=== PATIENT | female | born 1955 | race Hispanic/Latino ===

== ENCOUNTER → 2017-10-19 | Outpatient (CLI) | payer MEDICARE ==
[~2017-10-19] MED LIST: ASPI-1012 PO; ASPI-555 PO; ATOR20TA65 PO; CHOL50004 PO; INSU100I21 SQ; ISOSORBIDE PO; LEVE500T8 PO; LISI-617 PO; METF500T6 PO; METOPROLOL ER PO; SIMV20TA6 PO
== END | disposition home or self-care (01) ==
LOC: SHCH 09:54
PROVIDERS: ATTEND Internal Medicine Cardiovascular Disease
DX: I65.23 Occlusion and stenosis of bilateral carotid arteries (principal)
CPT/HCPCS: 93880

== ENCOUNTER 2017-11-07 20:25 | Inpatient (IN) | payer MEDICARE ==
[~2017-11-07] VITALS: Ht 154.9 cm; Wt 68.5 kg
[~2017-11-07 20:25] MED LIST changes: -ASPI-1012 PO; -ATOR20TA65 PO; -CHOL50004 PO; -METF500T6 PO
[2017-11-07] MEDS ORDERED: ASPIRIN 325 MG TABLET ONE (20:45)
[2017-11-07 21:04] LABS: BASOPHILS % (AUTO) 1.3 % (0.0-5.0); EOSINOPHILS % (AUTO) 3.8 % (0.0-8.0); HEMATOCRIT 37.1 % (36-48); LYMPHOCYTES % (AUTO) 27.8 % (21.0-51.0); MEAN CORPUSCULAR HEMOGLOBIN 30.1 pg (27.0-33.0); MEAN CORPUSCULAR HGB CONC 34.3 g/dL (32.0-36.0); MEAN CORPUSCULAR VOLUME 87.7 fL (79-99); MONOCYTES % (AUTO) 7.9 % (3.0-13.0); NEUTROPHILS % (AUTO) 59.2 % (40.0-77.0); PLATELET COUNT (AUTO) 178 K/uL (130-400); RED BLOOD CELL COUNT(AUTO) 4.23 MIL/uL (4.00-5.50); RED CELL DISTRIBUTION WIDTH 12.4 % (11.0-15.5); WHITE BLOOD COUNT (AUTO) 9.4 K/uL (4.8-10.8)
[2017-11-07 21:15] LABS: CREATININE 1.1 mg/dL (0.5-1.5); INR 1.01 (0.85-1.15); POTASSIUM 4.1 mmol/L (3.5-5.1); PROTHROMBIN TIME 10.6 SEC (9.6-11.6)
[2017-11-07 21:29] LABS: ALBUMIN 3.7 g/dL (3.5-5.0); BILIRUBIN,TOTAL 0.6 mg/dL (0.2-1.0); CREATINE KINASE MB 1.2 ng/mL (0.5-3.6); TOTAL PROTEIN, SERUM 7.2 g/dL (6.0-8.3)
[2017-11-07 21:32] LABS: B-TYPE NATRIURETIC PEPTIDE 15 pg/mL (0-100)
[2017-11-07] MEDS ORDERED: CLOPIDOGREL BISULFATE 75 MG TAB ONE (21:55)
[2017-11-07 23:30] VITALS: BP 144/79
[2017-11-08] MEDS ORDERED: LIDOCAINE HCL-MPF 1% 2ML VIAL IVP PRN (00:45)
[2017-11-08] MEDS ORDERED: POTASSIUM CHLORIDE 20 MEQ ERTAB PO PRN (00:45)
[2017-11-08] MEDS ORDERED: ACETAMINOPHEN 325 MG TAB PO PRN ×2 (00:45)
[2017-11-08] MEDS ORDERED: HYDRALAZINE HCL 20 MG/ML VIAL IV PRN (00:45)
[2017-11-08] MEDS ORDERED: POTASSIUM CHLORIDE 10% ELIXIR 20 MEQ/15 ML UDCUP PO PRN (00:45)
[2017-11-08] MEDS ORDERED: DEXTROSE 50%-WATER 50 ML DISP.SYRIN IV PRN (00:45)
[2017-11-08] MEDS ORDERED: ONDANSETRON HCL MDV 20ML 2 MG/ML VIAL IV PRN (00:45)
[2017-11-08] MEDS ORDERED: POTASSIUM CHLORIDE 20MEQ/100ML 100 ML IV PRN (00:45)
[2017-11-08] MEDS ORDERED: GLUCAGON 1MG KIT 1 MG ML IM PRN (00:45)
[2017-11-08] MEDS ORDERED: CHOL50004 PO (01:45)
[2017-11-08] MEDS ORDERED: METF500T6 PO (01:45)
[2017-11-08 03:49] VITALS: BP 123/60
[2017-11-08 04:44] LABS: MEAN CORPUSCULAR HEMOGLOBIN 30.2 pg (27.0-33.0); MEAN CORPUSCULAR VOLUME 89.1 fL (79-99); PLATELET COUNT (AUTO) 175 K/uL (130-400); RED BLOOD CELL COUNT(AUTO) 4.27 MIL/uL (4.00-5.50); RED CELL DISTRIBUTION WIDTH 12.6 % (11.0-15.5); WHITE BLOOD COUNT (AUTO) 8.6 K/uL (4.8-10.8)
[2017-11-08 04:58] LABS: HEMOGLOBIN A1C 8.1 % (4.0-6.0)
[2017-11-08] MEDS: INSULIN HUMULIN R 100 UNIT/ML 3ML SQ SCH ×4 (05:59→21:09)
[2017-11-08 07:00] VITALS: BP 130/73
[2017-11-08] MEDS: ASPIRIN 325MG EC TAB 325 MG TABLET.DR PO SCH (09:05)
[2017-11-08] MEDS: METOPROLOL TARTRATE 25 MG TAB PO SCH ×2 (09:05→20:12)
[2017-11-08] MEDS: PANTOPRAZOLE SODIUM 40 MG TABLET.DR PO SCH (09:05)
[2017-11-08 11:10] VITALS: BP 131/79
[2017-11-08 15:05] VITALS: BP 121/69
[2017-11-08 19:11] VITALS: BP 127/71
[2017-11-08] MEDS ORDERED: ATORVASTATIN CALCIUM 20 MG TABLET PO SCH (21:00)
[2017-11-08 23:30] VITALS: BP 113/64
[2017-11-09 03:27] VITALS: BP 133/68
[2017-11-09] MEDS: INSULIN HUMULIN R 100 UNIT/ML 3ML SQ SCH (06:15)
[2017-11-09 07:00] VITALS: BP 135/80
[2017-11-09] MEDS ORDERED: ATOR20TA65 PO (08:24)
[2017-11-09] MEDS: ASPIRIN 325MG EC TAB 325 MG TABLET.DR PO SCH (08:48)
[2017-11-09] MEDS: METOPROLOL TARTRATE 25 MG TAB PO SCH (08:48)
[2017-11-09] MEDS: PANTOPRAZOLE SODIUM 40 MG TABLET.DR PO SCH (08:49)
[2017-11-09] MEDS ORDERED: LISINOPRIL 2.5 MG TABLET PO SCH (09:00)
[2017-11-09] MEDS ORDERED: ISOSORBIDE MONO 30MG TAB SR PO SCH (09:00)
[2017-11-09 11:00] VITALS: BP 119/61
[2017-11-09] MEDS ORDERED: ASPI-1012 PO (11:18)
== END 2017-11-09 12:25 | disposition home or self-care (01) | DRG 69 ==
LOC: EDH 20:25 → EDHIP 21:30 → OBSVTOIN 21:30 → 3BH 22:27 → 3CH 23:15
PROVIDERS: ADMIT Family Medicine; ATTEND Family Medicine
DX: G45.9 Transient cerebral ischemic attack, unspecified (principal); E11.65 Type 2 diabetes mellitus with hyperglycemia; I11.9 Hypertensive heart disease without heart failure; E78.5 Hyperlipidemia, unspecified; I25.10 Atherosclerotic heart disease of native coronary artery without angina pectoris; Z79.82 Long term (current) use of aspirin; Z95.5 Presence of coronary angioplasty implant and graft; Z82.3 Family history of stroke; Z88.1 Allergy status to other antibiotic agents; Z88.8 Allergy status to other drugs, medicaments and biological substances
CPT/HCPCS: 36415; 70450; 70544; 70547; 70551; 71045; 80053; 82270; 82550; 82553; 82948; 83036; 83874; 83880; 84443; 84484; 85025; 85027; 85610; 85730; 92522; 92610; 93005; 93306; 99291; J1815

== ENCOUNTER 2017-11-12 01:27 | Emergency (ER) | payer MEDICARE ==
[~2017-11-12 01:27] MED LIST changes: +ASPI-1012 PO; +ATOR20TA65 PO; +CHOL50004 PO; +METF500T6 PO
[2017-11-12 01:57] LABS: EOSINOPHILS % (AUTO) 3.3 % (0.0-8.0); HEMATOCRIT 37.5 % (36-48); LYMPHOCYTES % (AUTO) 24.8 % (21.0-51.0); MEAN CORPUSCULAR HEMOGLOBIN 30.3 pg (27.0-33.0); MEAN CORPUSCULAR HGB CONC 34.2 g/dL (32.0-36.0); MEAN CORPUSCULAR VOLUME 88.7 fL (79-99); MONOCYTES % (AUTO) 7.1 % (3.0-13.0); NEUTROPHILS % (AUTO) 63.8 % (40.0-77.0); NUCLEATED RED BLOOD CELLS 0.1 % (0.0-0.19); PLATELET COUNT (AUTO) 186 K/uL (130-400); RED BLOOD CELL COUNT(AUTO) 4.23 MIL/uL (4.00-5.50); RED CELL DISTRIBUTION WIDTH 12.7 % (11.0-15.5); WHITE BLOOD COUNT (AUTO) 11.8 K/uL (4.8-10.8)
[2017-11-12 02:11] LABS: POTASSIUM 3.8 mmol/L (3.5-5.1)
[2017-11-12 02:22] LABS: ALBUMIN 3.7 g/dL (3.5-5.0); BILIRUBIN,TOTAL 0.8 mg/dL (0.2-1.0); TOTAL PROTEIN, SERUM 7.2 g/dL (6.0-8.3)
[2017-11-12 02:32] LABS: APPEARANCE,URINE Clear (CLEAR); BILIRUBIN,URINE Negative (NEGATIVE); COLOR,URINE Yellow (YELLOW); GLUCOSE, URINE (UA) Negative (NEGATIVE); KETONES,URINE Negative (NEGATIVE); LEUKOCYTE ESTERASE ,URINE Trace (NEGATIVE); NITRATE,URINE Negative (NEGATIVE); OCCULT BLOOD,URINE Negative (NEGATIVE); PROTEIN,URINE Negative (NEGATIVE)
[2017-11-12] MEDS ORDERED: LIDOCAINE HCL 2% VISCOUS 15 ML UDCUP ONE (02:40)
[2017-11-12] MEDS ORDERED: MAG HYDROX/AL HYDROX/SIMETH ES 30 ML SUSP UDCUP ONE (02:40)
[2017-11-12] MEDS ORDERED: NITROGLYCERIN 1GM/1 INCH PACKET TD ONE (02:41)
[2017-11-12 02:49] LABS: BACTERIA,URINE Few /HPF (None Seen); RBC,URINE None Seen /HPF (0-1); SQUAMOUS EPITHELIAL CELL,UR 0-2 /HPF (0-2)
[2017-11-12] MEDS ORDERED: IOPAMIDOL-370 100 ML VIAL IV ONE (05:15)
== END 2017-11-12 07:48 | disposition home or self-care (01) ==
LOC: EDH 01:27
DX: R07.89 Other chest pain (principal); E11.9 Type 2 diabetes mellitus without complications; E78.5 Hyperlipidemia, unspecified; I10 Essential (primary) hypertension; I25.10 Atherosclerotic heart disease of native coronary artery without angina pectoris; Z88.2 Allergy status to sulfonamides; Z88.1 Allergy status to other antibiotic agents; Z90.49 Acquired absence of other specified parts of digestive tract; Z98.890 Other specified postprocedural states
CPT/HCPCS: 36415; 71045; 71275; 80053; 81001; 82150; 83690; 84484 ×2; 85025; 85378; 93005 ×2; 99285; Q9967

== ENCOUNTER 2017-11-23 20:28 | Emergency (ER) | payer MEDICARE ==
[2017-11-23] MEDS ORDERED: ACETAMINOPHEN-CODEINE 300/30MG TAB ONE (20:50)
== END 2017-11-23 21:31 | disposition home or self-care (01) ==
LOC: EDH 20:28
DX: S83.8X1A Sprain of other specified parts of right knee, initial encounter (principal); I25.10 Atherosclerotic heart disease of native coronary artery without angina pectoris; E11.9 Type 2 diabetes mellitus without complications; E78.5 Hyperlipidemia, unspecified; I10 Essential (primary) hypertension; Z88.2 Allergy status to sulfonamides; Z88.1 Allergy status to other antibiotic agents; X50.0XXA Overexertion from strenuous movement or load, initial encounter; Y93.89 Activity, other specified; Y92.098 Other place in other non-institutional residence as the place of occurrence of the external cause; Y99.8 Other external cause status
CPT/HCPCS: 73562

== ENCOUNTER 2017-11-29 16:42 | Emergency (ER) | payer MEDICARE ==
[2017-11-29 17:54] LABS: BASOPHILS % (AUTO) 1.2 % (0.0-5.0); EOSINOPHILS % (AUTO) 3.3 % (0.0-8.0); LYMPHOCYTES % (AUTO) 24.1 % (21.0-51.0); MEAN CORPUSCULAR HEMOGLOBIN 30.3 pg (27.0-33.0); MEAN CORPUSCULAR HGB CONC 34.2 g/dL (32.0-36.0); MEAN CORPUSCULAR VOLUME 88.5 fL (79-99); MONOCYTES % (AUTO) 6.3 % (3.0-13.0); NEUTROPHILS % (AUTO) 65.1 % (40.0-77.0); NUCLEATED RED BLOOD CELLS 0.1 % (0.0-0.19); PLATELET COUNT (AUTO) 217 K/uL (130-400); WHITE BLOOD COUNT (AUTO) 10.8 K/uL (4.8-10.8)
[2017-11-29 18:01] LABS: CREATININE 0.9 mg/dL (0.5-1.5); POTASSIUM 4.5 mmol/L (3.5-5.1)
[2017-11-29 18:06] LABS: ALBUMIN 3.7 g/dL (3.5-5.0); BILIRUBIN,TOTAL 0.4 mg/dL (0.2-1.0); TOTAL PROTEIN, SERUM 7.2 g/dL (6.0-8.3)
== END 2017-11-29 19:20 | disposition home or self-care (01) ==
LOC: EDH 16:42
DX: K59.00 Constipation, unspecified (principal); R10.84 Generalized abdominal pain; E11.9 Type 2 diabetes mellitus without complications; E78.5 Hyperlipidemia, unspecified; I10 Essential (primary) hypertension; I25.10 Atherosclerotic heart disease of native coronary artery without angina pectoris; Z90.49 Acquired absence of other specified parts of digestive tract; Z88.1 Allergy status to other antibiotic agents; Z88.2 Allergy status to sulfonamides
CPT/HCPCS: 36415; 74021; 80053; 85025

== ENCOUNTER → 2017-12-01 | Outpatient (CLI) | payer MEDICARE | END | disposition home or self-care (01) | LOC: RAH 14:57 | PROVIDERS: ATTEND Nurse Practitioner Family | DX: M25.512 Pain in left shoulder (principal) | CPT/HCPCS: 73030 ==

== ENCOUNTER 2018-02-25 11:50 | Emergency (ER) | payer MEDICARE ==
[~2018-02-25 11:50] MED LIST changes: +METF-444 PO; -METF500T6 PO
[2018-02-25] MEDS ORDERED: ORPHENADRINE CITRATE 30 MG/ML ML ONE (12:15)
== END 2018-02-25 13:30 | disposition home or self-care (01) ==
LOC: EDH 11:50
DX: M62.838 Other muscle spasm (principal); K21.9 Gastro-esophageal reflux disease without esophagitis; E78.5 Hyperlipidemia, unspecified; I25.10 Atherosclerotic heart disease of native coronary artery without angina pectoris; I10 Essential (primary) hypertension; E11.9 Type 2 diabetes mellitus without complications; Z88.2 Allergy status to sulfonamides; Z88.1 Allergy status to other antibiotic agents
CPT/HCPCS: 72040; 96372; 99284; J2360

== ENCOUNTER 2018-02-27 10:49 | Emergency (ER) | payer MEDICARE ==
[2018-02-27] MEDS ORDERED: DIAZEPAM 5 MG TABLET ONE (11:38)
[2018-02-27] MEDS ORDERED: LIDOCAINE 5% TOPICAL PATCH TP ONE (11:38)
== END 2018-02-27 16:35 | disposition home or self-care (01) ==
LOC: EDH 10:49
DX: M62.838 Other muscle spasm (principal); E78.5 Hyperlipidemia, unspecified; E11.9 Type 2 diabetes mellitus without complications; K21.9 Gastro-esophageal reflux disease without esophagitis; I25.10 Atherosclerotic heart disease of native coronary artery without angina pectoris; Z88.1 Allergy status to other antibiotic agents; Z88.2 Allergy status to sulfonamides; Z90.49 Acquired absence of other specified parts of digestive tract; Z98.890 Other specified postprocedural states

== ENCOUNTER 2018-03-10 14:32 | Emergency (ER) | payer MEDICARE ==
[2018-03-10] MEDS ORDERED: MORPHINE SULFATE 4 MG/1ML SYG ONE ×2 (14:54→15:11)
[2018-03-10] MEDS ORDERED: ONDANSETRON HCL 4 MG/2 ML VIAL ONE (15:11)
[2018-03-10] MEDS ORDERED: SODIUM CHLORIDE 0.9% 500ML 500 ML IV ONE (15:12)
[2018-03-10 15:25] LABS: BASOPHILS % (AUTO) 0.7 % (0.0-5.0); EOSINOPHILS % (AUTO) 0.8 % (0.0-8.0); HEMATOCRIT 41.1 % (36-48); LYMPHOCYTES % (AUTO) 16.1 % (21.0-51.0); MEAN CORPUSCULAR HEMOGLOBIN 29.6 pg (27.0-33.0); MEAN CORPUSCULAR VOLUME 89.7 fL (79-99); MONOCYTES % (AUTO) 5.9 % (3.0-13.0); NEUTROPHILS % (AUTO) 76.5 % (40.0-77.0); PLATELET COUNT (AUTO) 241 K/uL (130-400); RED BLOOD CELL COUNT(AUTO) 4.58 MIL/uL (4.00-5.50); RED CELL DISTRIBUTION WIDTH 12.8 % (11.0-15.5); WHITE BLOOD COUNT (AUTO) 14.7 K/uL (4.8-10.8)
[2018-03-10 15:33] LABS: APPEARANCE,URINE Clear (CLEAR); BILIRUBIN,URINE Negative (NEGATIVE); COLOR,URINE Yellow (YELLOW); GLUCOSE, URINE (UA) TRACE mg/dL (NEGATIVE); KETONES,URINE Negative (NEGATIVE); LEUKOCYTE ESTERASE ,URINE Small (NEGATIVE); NITRATE,URINE Negative (NEGATIVE); OCCULT BLOOD,URINE Negative (NEGATIVE); PH,URINE 5.5 (5.0-8.0); PROTEIN,URINE Negative (NEGATIVE); UROBILINOGEN,URINE 0.2 mg/dL (0.2-1.0)
[2018-03-10 15:40] LABS: CREATININE 0.9 mg/dL (0.5-1.5); POTASSIUM 4.2 mmol/L (3.5-5.1)
[2018-03-10 15:46] LABS: ALBUMIN 3.8 g/dL (3.5-5.0); TOTAL PROTEIN, SERUM 7.3 g/dL (6.0-8.3)
[2018-03-10] MEDS ORDERED: IOHEXOL-350 75 ML VIAL IV ONE (15:46)
[2018-03-10 15:56] LABS: BACTERIA,URINE None Seen /HPF (None Seen); RBC,URINE None Seen /HPF (0-1); WBC,URINE 0-1 /HPF (0-1)
== END 2018-03-10 17:26 | disposition home or self-care (01) ==
LOC: EDH 14:32
DX: R10.33 Periumbilical pain (principal); I25.10 Atherosclerotic heart disease of native coronary artery without angina pectoris; E11.9 Type 2 diabetes mellitus without complications; K21.9 Gastro-esophageal reflux disease without esophagitis; E78.5 Hyperlipidemia, unspecified; I10 Essential (primary) hypertension; Z88.2 Allergy status to sulfonamides; Z88.1 Allergy status to other antibiotic agents
CPT/HCPCS: 36415; 74177; 80053; 81001; 83690; 84484; 85025; 93005; 96374; 96375; 99285; J2270 ×2; J2405; J7040; Q9967

== ENCOUNTER 2018-03-18 03:51 | Emergency (ER) | payer MEDICARE ==
[2018-03-18 04:18] LABS: APPEARANCE,URINE Cloudy (CLEAR); BILIRUBIN,URINE Small (NEGATIVE); COLOR,URINE Red (YELLOW); GLUCOSE, URINE (UA) Negative (NEGATIVE); KETONES,URINE Negative (NEGATIVE); LEUKOCYTE ESTERASE ,URINE Large (NEGATIVE); NITRATE,URINE Positive (NEGATIVE); OCCULT BLOOD,URINE Large (NEGATIVE); PH,URINE 5.5 (5.0-8.0); PROTEIN,URINE POS 2+ (NEGATIVE); UROBILINOGEN,URINE 0.2 mg/dL (0.2-1.0)
[2018-03-18 04:35] LABS: BACTERIA,URINE Rare /HPF (None Seen); RBC,URINE 26-50 /HPF (0-1); SQUAMOUS EPITHELIAL CELL,UR Rare /HPF (0-2)
[2018-03-18] MEDS ORDERED: LIDOCAINE HCL-MPF 1% 2ML VIAL ONE (04:41)
[2018-03-18] MEDS ORDERED: CEFTRIAXONE SODIUM 1 GM ONE (04:42)
== END 2018-03-18 05:04 | disposition home or self-care (01) ==
LOC: EDH 03:51
DX: N39.0 Urinary tract infection, site not specified (principal); I25.10 Atherosclerotic heart disease of native coronary artery without angina pectoris; E11.9 Type 2 diabetes mellitus without complications; K21.9 Gastro-esophageal reflux disease without esophagitis; E78.5 Hyperlipidemia, unspecified; I10 Essential (primary) hypertension; Z90.49 Acquired absence of other specified parts of digestive tract; Z98.890 Other specified postprocedural states; Z88.1 Allergy status to other antibiotic agents; Z88.2 Allergy status to sulfonamides
CPT/HCPCS: 81001; 96372; 99283; J0696; J3490

== ENCOUNTER 2018-05-27 02:01 | Emergency (ER) | payer MEDICARE ==
[2018-05-27] MEDS ORDERED: ORPHENADRINE CITRATE 30 MG/ML ML ONE (02:18)
[2018-05-27] MEDS ORDERED: DIAZEPAM 5 MG TABLET ONE (02:18)
== END 2018-05-27 03:18 | disposition home or self-care (01) ==
LOC: EDH 02:01
DX: M54.2 Cervicalgia (principal); I10 Essential (primary) hypertension; I25.10 Atherosclerotic heart disease of native coronary artery without angina pectoris; E11.9 Type 2 diabetes mellitus without complications; K21.9 Gastro-esophageal reflux disease without esophagitis; E78.5 Hyperlipidemia, unspecified; Z90.49 Acquired absence of other specified parts of digestive tract; Z98.890 Other specified postprocedural states; Z88.2 Allergy status to sulfonamides; Z88.1 Allergy status to other antibiotic agents
CPT/HCPCS: 93005; 96372; 99283; J2360

== ENCOUNTER → 2018-07-20 | Outpatient (CLI) | payer MEDICARE | END | disposition home or self-care (01) | LOC: SHCH 10:48 | PROVIDERS: ATTEND Internal Medicine Cardiovascular Disease | DX: I87.2 Venous insufficiency (chronic) (peripheral) (principal) | CPT/HCPCS: 93971 ==

== ENCOUNTER 2018-08-15 20:00 | Emergency (ER) | payer MEDICARE ==
[2018-08-15] MEDS ORDERED: SIMETHICONE 80 MG TAB.CHEW ONE (21:10)
[2018-08-15] MEDS ORDERED: HYOSCYAMINE SULFATE 0.125 MG TAB.SUBL SL ONE (21:11)
== END 2018-08-15 21:44 | disposition home or self-care (01) ==
LOC: EDH 20:00
DX: K59.09 Other constipation (principal); R14.0 Abdominal distension (gaseous); R25.2 Cramp and spasm; I25.10 Atherosclerotic heart disease of native coronary artery without angina pectoris; K21.9 Gastro-esophageal reflux disease without esophagitis; E78.5 Hyperlipidemia, unspecified; E11.9 Type 2 diabetes mellitus without complications; I10 Essential (primary) hypertension; Z88.2 Allergy status to sulfonamides; Z88.1 Allergy status to other antibiotic agents; Z90.49 Acquired absence of other specified parts of digestive tract

== ENCOUNTER → 2018-10-10 | Outpatient (CLI) | payer MEDICARE | END | disposition home or self-care (01) | LOC: RAH 11:44 | PROVIDERS: ATTEND Nurse Practitioner Family | DX: K59.00 Constipation, unspecified (principal) | CPT/HCPCS: 74018 ==

== ENCOUNTER → 2018-10-11 | Outpatient (CLI) | payer MEDICARE | END | disposition home or self-care (01) | LOC: RAH 10:00 | PROVIDERS: ATTEND Nurse Practitioner Family | DX: Z12.31 Encounter for screening mammogram for malignant neoplasm of breast (principal) | CPT/HCPCS: 77067 ==

== ENCOUNTER 2018-11-13 09:50 | Emergency (ER) | payer MEDICARE ==
[2018-11-13 10:27] LABS: BASOPHILS % (AUTO) 1.3 % (0.0-5.0); EOSINOPHILS % (AUTO) 1.8 % (0.0-8.0); HEMATOCRIT 39.8 % (36-48); LYMPHOCYTES % (AUTO) 24.5 % (21.0-51.0); MEAN CORPUSCULAR HEMOGLOBIN 30.6 pg (27.0-33.0); MEAN CORPUSCULAR HGB CONC 34.3 g/dL (32.0-36.0); MEAN CORPUSCULAR VOLUME 89.4 fL (79-99); MONOCYTES % (AUTO) 6.6 % (3.0-13.0); NEUTROPHILS % (AUTO) 65.8 % (40.0-77.0); PLATELET COUNT (AUTO) 179 K/uL (130-400); RED BLOOD CELL COUNT(AUTO) 4.45 MIL/uL (4.00-5.50); RED CELL DISTRIBUTION WIDTH 12.6 % (11.0-15.5); WHITE BLOOD COUNT (AUTO) 8.3 K/uL (4.8-10.8)
[2018-11-13] MEDS ORDERED: LIDOCAINE HCL 2% VISCOUS 15 ML UDCUP ONE (10:41)
[2018-11-13] MEDS ORDERED: MAG HYDROX/AL HYDROX/SIMETH ES 30 ML SUSP UDCUP ONE (10:42)
[2018-11-13] MEDS ORDERED: FAMOTIDINE 20MG TAB 20 MG TAB ONE (10:42)
[2018-11-13 10:45] LABS: INR 1.02 (0.85-1.15); PARTIAL THROMBOPLASTIN TIME 25.6 SEC (26.3-35.5); PROTHROMBIN TIME 10.7 SEC (9.6-11.6)
[2018-11-13 11:03] LABS: CREATININE 0.9 mg/dL (0.5-1.5); POTASSIUM 4.3 mmol/L (3.5-5.1)
== END 2018-11-13 12:59 | disposition home or self-care (01) ==
LOC: EDH 09:50
DX: K21.0 Gastro-esophageal reflux disease with esophagitis (principal); R07.89 Other chest pain; R11.0 Nausea; I25.10 Atherosclerotic heart disease of native coronary artery without angina pectoris; E11.9 Type 2 diabetes mellitus without complications; E78.5 Hyperlipidemia, unspecified; I10 Essential (primary) hypertension; Z72.0 Tobacco use; Z88.2 Allergy status to sulfonamides; Z88.1 Allergy status to other antibiotic agents
CPT/HCPCS: 36415; 71045; 80048; 82550; 84484; 85025; 85610; 85730; 93005

== ENCOUNTER → 2018-12-26 | Outpatient (CLI) | payer MEDICARE | END | disposition home or self-care (01) | LOC: SHCH 12:57 | PROVIDERS: ATTEND Internal Medicine Cardiovascular Disease | DX: I05.9 Rheumatic mitral valve disease, unspecified (principal); I10 Essential (primary) hypertension | CPT/HCPCS: 93306 ==

== ENCOUNTER → 2018-12-29 | Outpatient (CLI) | payer MEDICARE ==
[~2018-12-29] VITALS: Ht 152.4 cm; Wt 63.0 kg
[~2018-12-29] MED LIST changes: +REGADENOSON 0.4 MG/5 ML PF SYG IVP SCH
== END | disposition home or self-care (01) ==
LOC: SHCH 07:56
PROVIDERS: ATTEND Internal Medicine Cardiovascular Disease
DX: I10 Essential (primary) hypertension (principal); I25.10 Atherosclerotic heart disease of native coronary artery without angina pectoris
CPT/HCPCS: 78452; 93017; 96374; A9500 ×2; J2785

== ENCOUNTER → 2019-04-19 | Outpatient (CLI) | payer MEDICARE ==
[~2019-04-19] MED LIST changes: +IOHEXOL-350 75 ML VIAL IV ONE; +LEVE-43 PO; -LEVE500T8 PO; -REGADENOSON 0.4 MG/5 ML PF SYG IVP SCH; +SIMV-43 PO; -SIMV20TA6 PO
== END | disposition home or self-care (01) ==
LOC: RAH 08:30
PROVIDERS: ATTEND Nurse Practitioner Family
DX: I25.10 Atherosclerotic heart disease of native coronary artery without angina pectoris (principal); M47.815 Spondylosis without myelopathy or radiculopathy, thoracolumbar region; Z90.49 Acquired absence of other specified parts of digestive tract
CPT/HCPCS: 74170; Q9967

== ENCOUNTER 2019-08-21 05:26 | Emergency (ER) | payer MEDICARE ==
[~2019-08-21 05:26] MED LIST changes: -ASPI-555 PO; -ATOR20TA65 PO; -CHOL50004 PO; +CLON0.1T PO; +ESOMEPRAZOLE PO; -IOHEXOL-350 75 ML VIAL IV ONE; -LEVE-43 PO; +LUBI24CA2 PO; +MELO-106 PO; -METF-444 PO; +ROSU5TAB12 PO; -SIMV-43 PO
== END 2019-08-21 06:30 | disposition home or self-care (01) ==
LOC: EDH 05:26
DX: E11.65 Type 2 diabetes mellitus with hyperglycemia (principal); I10 Essential (primary) hypertension; E78.5 Hyperlipidemia, unspecified; K21.9 Gastro-esophageal reflux disease without esophagitis; I25.10 Atherosclerotic heart disease of native coronary artery without angina pectoris; Z98.890 Other specified postprocedural states; Z90.49 Acquired absence of other specified parts of digestive tract; Z88.1 Allergy status to other antibiotic agents; Z88.2 Allergy status to sulfonamides
CPT/HCPCS: 82948; 99282

== ENCOUNTER 2019-09-29 20:25 | Emergency (ER) | payer MEDICARE ==
[2019-09-29 21:12] LABS: APPEARANCE,URINE Clear (CLEAR); BILIRUBIN,URINE Negative (NEGATIVE); COLOR,URINE Yellow (YELLOW); GLUCOSE, URINE (UA) 250 mg/dL (NEGATIVE); KETONES,URINE Negative (NEGATIVE); LEUKOCYTE ESTERASE ,URINE Negative (NEGATIVE); NITRATE,URINE Negative (NEGATIVE); OCCULT BLOOD,URINE Negative (NEGATIVE); PROTEIN,URINE Negative (NEGATIVE); UROBILINOGEN,URINE 0.2 mg/dL (0.2-1.0)
[2019-09-29 21:28] LABS: BACTERIA,URINE Rare /HPF (None Seen); RBC,URINE 0-1 /HPF (0-1); SQUAMOUS EPITHELIAL CELL,UR Rare /HPF (0-2); WBC,URINE 0-1 /HPF (0-1)
[2019-09-29 21:33] LABS: BASOPHILS % (AUTO) 1.1 % (0.0-5.0); EOSINOPHILS % (AUTO) 2.9 % (0.0-8.0); HEMATOCRIT 36.4 % (36-48); LYMPHOCYTES % (AUTO) 23.2 % (21.0-51.0); MEAN CORPUSCULAR HEMOGLOBIN 30.5 pg (27.0-33.0); MEAN CORPUSCULAR HGB CONC 34.3 g/dL (32.0-36.0); MEAN CORPUSCULAR VOLUME 88.8 fL (79-99); MONOCYTES % (AUTO) 8.8 % (3.0-13.0); NEUTROPHILS % (AUTO) 63.7 % (40.0-77.0); PLATELET COUNT (AUTO) 173 K/uL (130-400); WHITE BLOOD COUNT (AUTO) 7.6 K/uL (4.8-10.8)
[2019-09-29] MEDS ORDERED: DOCUSATE SODIUM 100 MG CAP PO ONE (21:43)
[2019-09-29] MEDS ORDERED: HYOSCYAMINE SULFATE 0.125 MG TAB.SUBL SL ONE (21:43)
[2019-09-29 21:48] LABS: POTASSIUM 3.6 mmol/L (3.5-5.1)
[2019-09-29 21:55] LABS: ALBUMIN 3.8 g/dL (3.5-5.0); BILIRUBIN,TOTAL 0.5 mg/dL (0.2-1.0)
== END 2019-09-29 22:21 | disposition home or self-care (01) ==
LOC: EDH 20:25
DX: K59.00 Constipation, unspecified (principal); R10.12 Left upper quadrant pain; I10 Essential (primary) hypertension; E11.9 Type 2 diabetes mellitus without complications; E78.5 Hyperlipidemia, unspecified; K21.9 Gastro-esophageal reflux disease without esophagitis; I25.10 Atherosclerotic heart disease of native coronary artery without angina pectoris; Z88.1 Allergy status to other antibiotic agents; Z88.2 Allergy status to sulfonamides; Z90.49 Acquired absence of other specified parts of digestive tract; Z98.890 Other specified postprocedural states
CPT/HCPCS: 36415; 74018; 74176; 80053; 81001; 82150; 83690; 85025

== ENCOUNTER 2019-10-05 14:37 | Emergency (ER) | payer MEDICARE ==
[2019-10-05 15:00] LABS: EOSINOPHILS % (AUTO) 1.5 % (0.0-8.0); HEMATOCRIT 39.4 % (36-48); LYMPHOCYTES % (AUTO) 18.5 % (21.0-51.0); MEAN CORPUSCULAR HEMOGLOBIN 29.2 pg (27.0-33.0); MEAN CORPUSCULAR HGB CONC 33.2 g/dL (32.0-36.0); MEAN CORPUSCULAR VOLUME 87.9 fL (79-99); MONOCYTES % (AUTO) 6.2 % (3.0-13.0); NEUTROPHILS % (AUTO) 72.5 % (40.0-77.0); PLATELET COUNT (AUTO) 237 K/uL (130-400); RED BLOOD CELL COUNT(AUTO) 4.48 MIL/uL (4.00-5.50); RED CELL DISTRIBUTION WIDTH 11.9 % (11.0-15.5); WHITE BLOOD COUNT (AUTO) 9.7 K/uL (4.8-10.8)
[2019-10-05 15:10] LABS: POTASSIUM 4.3 mmol/L (3.5-5.1)
[2019-10-05 15:13] LABS: INR 1.02 (0.85-1.15); PARTIAL THROMBOPLASTIN TIME 24.7 SEC (26.3-35.5)
[2019-10-05 15:14] LABS: ALBUMIN 4.1 g/dL (3.5-5.0); BILIRUBIN,TOTAL 0.6 mg/dL (0.2-1.0); TOTAL PROTEIN, SERUM 7.7 g/dL (6.0-8.3)
[2019-10-05] MEDS ORDERED: IOHEXOL-350 75 ML VIAL IV ONE (16:01)
[2019-10-05 18:06] LABS: APPEARANCE,URINE Clear (CLEAR); BILIRUBIN,URINE Negative (NEGATIVE); COLOR,URINE Yellow (YELLOW); GLUCOSE, URINE (UA) Negative (NEGATIVE); KETONES,URINE Negative (NEGATIVE); LEUKOCYTE ESTERASE ,URINE Small (NEGATIVE); NITRATE,URINE Negative (NEGATIVE); OCCULT BLOOD,URINE Negative (NEGATIVE); PH,URINE 5.5 (5.0-8.0); PROTEIN,URINE Negative (NEGATIVE); UROBILINOGEN,URINE 0.2 mg/dL (0.2-1.0)
[2019-10-05 18:15] LABS: AMPHET/METH SCREEN,URINE NEGATIVE (NEGATIVE); BARBITURATE SCREEN, URINE NEGATIVE (NEGATIVE); BENZODIAZEPINES SCREEN,URINE NEGATIVE (NEGATIVE); CANNABINOID SCREEN,URINE NEGATIVE (NEGATIVE); COCAINE SCREEN,URINE NEGATIVE (NEGATIVE); OPIATE SCREEN,URINE NEGATIVE (NEGATIVE); PHENCYCLIDINE SCREEN,URINE NEGATIVE (NEGATIVE)
[2019-10-05 18:18] LABS: BACTERIA,URINE Rare /HPF (None Seen); RBC,URINE 0-1 /HPF (0-1)
[2019-10-05 18:19] LABS: SQUAMOUS EPITHELIAL CELL,UR Few /HPF (0-2)
== END 2019-10-05 18:58 | disposition home or self-care (01) ==
LOC: EDH 14:37
DX: R20.2 Paresthesia of skin (principal); I10 Essential (primary) hypertension; E11.9 Type 2 diabetes mellitus without complications; K21.9 Gastro-esophageal reflux disease without esophagitis; I25.10 Atherosclerotic heart disease of native coronary artery without angina pectoris; R79.1 Abnormal coagulation profile; E78.5 Hyperlipidemia, unspecified; Z88.1 Allergy status to other antibiotic agents; Z88.2 Allergy status to sulfonamides
CPT/HCPCS: 36415; 70450; 70496; 70498; 71045; 80053; 80305; 81001; 82550; 82948 ×2; 83721; 84484; 85025; 85610; 85730; 93005; 99285; Q9967

== ENCOUNTER 2019-10-17 10:32 | Day surgery (SDC) | payer MEDICARE ==
[~2019-10-17] VITALS: Ht 148.6 cm; Wt 63.7 kg
[2019-10-17] VITALS (9 sets, daily range): BP systolic 98–134; BP diastolic 57–68
[~2019-10-17 10:32] MED LIST changes: -CLON0.1T PO; +CLOP75TA14 PO; +ESOM40CA54 PO; -ESOMEPRAZOLE PO; +ISOS30TA6 PO; -ISOSORBIDE PO; -LISI-617 PO; +LISI2.5T2 PO; -MELO-106 PO; +METO-391 PO; -METOPROLOL ER PO; -ROSU5TAB12 PO
--- NOTE | 2019-10-17 11:30 | NUR ---
PRE OP PT ARRIVED IN NO DISTRESS. PT ORIENTED TO ROOM AND CALL LIGHT GIVEN. BED IN LOWEST POSITION. PT STILL PENDING LAB RESULTS AND CXR TO BE DONE.
[2019-10-17] MEDS ORDERED: SODIUM CHLORIDE 0.9% 1000ML 1,000 ML IV ONE (11:44)
[2019-10-17 12:01] LABS: BASOPHILS % (AUTO) 1.1 % (0.0-5.0); EOSINOPHILS % (AUTO) 1.2 % (0.0-8.0); HEMATOCRIT 37.2 % (36-48); LYMPHOCYTES % (AUTO) 16.5 % (21.0-51.0); MEAN CORPUSCULAR HEMOGLOBIN 29.5 pg (27.0-33.0); MEAN CORPUSCULAR HGB CONC 33.1 g/dL (32.0-36.0); MEAN CORPUSCULAR VOLUME 89.2 fL (79-99); MONOCYTES % (AUTO) 5.9 % (3.0-13.0); PLATELET COUNT (AUTO) 225 K/uL (130-400); RED BLOOD CELL COUNT(AUTO) 4.17 MIL/uL (4.00-5.50); WHITE BLOOD COUNT (AUTO) 7.3 K/uL (4.8-10.8)
[2019-10-17 12:03] LABS: APPEARANCE,URINE Cloudy (CLEAR); BILIRUBIN,URINE Negative (NEGATIVE); COLOR,URINE Yellow (YELLOW); GLUCOSE, URINE (UA) Negative (NEGATIVE); KETONES,URINE Negative (NEGATIVE); LEUKOCYTE ESTERASE ,URINE Moderate (NEGATIVE); NITRATE,URINE Negative (NEGATIVE); OCCULT BLOOD,URINE Negative (NEGATIVE); PROTEIN,URINE Negative (NEGATIVE)
[2019-10-17 12:12] LABS: CREATININE 0.9 mg/dL (0.5-1.5); POTASSIUM 3.9 mmol/L (3.5-5.1)
[2019-10-17 12:17] LABS: BACTERIA,URINE Few /HPF (None Seen); MUCUS,URINE Few LPF (None Seen); SQUAMOUS EPITHELIAL CELL,UR Few /HPF (0-2)
--- NOTE | 2019-10-17 12:20 | NUR ---
report called dr mac and informed him of ua, sore throat with inspiratory wheezing and cough in am. no fever or phlegms. md also informed of recent er visit for numbness to left arm and face. md will still proceed with procedure.
[2019-10-17 12:24] LABS: INR 1.04 (0.85-1.15); PROTHROMBIN TIME 11.2 SEC (9.6-11.6)
--- NOTE | 2019-10-17 13:15 | NUR ---
TRANSFER PT TAKEN TO [facility] VIA BED IN NO DISTRESS BY CEHLE LOZOYA
[2019-10-17] MEDS ORDERED: HEPARIN SODIUM 1000UNIT/ML 10ML VIAL ONE (13:28)
[2019-10-17] MEDS ORDERED: IOHEXOL 350 MG/ML 100ML INFUS..BTL IV ONE (13:28)
[2019-10-17] MEDS ORDERED: NITROGLYCERIN 2 MG/VIAL VIAL IV ONE ×2 (13:28→13:30)
[2019-10-17] MEDS ORDERED: LIDOCAINE HCL 2% 20ML ONE (13:29)
[2019-10-17] MEDS ORDERED: MIDAZOLAM HCL 1 MG/ML 2ML VIAL ONE (13:29)
[2019-10-17] MEDS ORDERED: FENTANYL CITRATE PF 50 MCG/1 ML 2ML VIAL ONE (13:29)
[2019-10-17] MEDS ORDERED: IOHEXOL-350 50ML VIAL IV ONE (13:29)
[2019-10-17] MEDS ORDERED: CLOPIDOGREL BISULFATE 300 MG TAB ONE (14:02)
--- NOTE | 2019-10-17 15:20 | NUR ---
report recieved report from paul gramajo rn. rt groin with mynx device. pt bedrest for 3 hours and will be discharged post.
--- NOTE | 2019-10-17 18:10 | NUR ---
PT STABLE, NO DISTRESS. RT GROIN DRESSING D/I, NO ACTIVE BLEEDING OR HEMATOMA TO RT GROIN. INSTRUCTION GIVEN TO PT SPOUSE, BOTH VERBALIZED UNDERSTANDING. PT DRESSEDED WITH ASSISTANCE, IV D/C. PT TAKEN TO CAR IN WHEELCHAIR, DRIVEN HOME BY SPOUSE.
== END 2019-10-17 18:10 | disposition home or self-care (01) ==
LOC: DAH 10:32 → CLH 10:32
PROVIDERS: ATTEND Internal Medicine Cardiovascular Disease
DX: I25.10 Atherosclerotic heart disease of native coronary artery without angina pectoris (principal); I10 Essential (primary) hypertension; E78.5 Hyperlipidemia, unspecified; Z88.1 Allergy status to other antibiotic agents; Z88.2 Allergy status to sulfonamides; Z79.899 Other long term (current) drug therapy; Z98.890 Other specified postprocedural states; Z86.73 Personal history of transient ischemic attack (TIA), and cerebral infarction without residual deficits; Z79.4 Long term (current) use of insulin; Z83.3 Family history of diabetes mellitus; Z82.49 Family history of ischemic heart disease and other diseases of the circulatory system; Z82.3 Family history of stroke
CPT/HCPCS: 36415; 71045; 80048; 81001; 82948; 85025; 85610; 85730; 87088; 92920; 93005; 93454; A4215; A4216; A4221; A4222; A4223 ×3; A4606; A4663; C1725 ×2; C1760; C1769 ×2; C1874; C1887; C1894 ×2; C9600; J1644 ×2; J2250; J3010; J3490 ×3; J7030; Q9965; Q9967 ×2; 99156; 99157; C9601

== ENCOUNTER 2019-11-24 12:50 | Emergency (ER) | payer MEDICARE ==
[2019-11-24 14:59] LABS: BASOPHILS % (AUTO) 0.8 % (0.0-5.0); HEMATOCRIT 37.6 % (36-48); LYMPHOCYTES % (AUTO) 13.9 % (21.0-51.0); MEAN CORPUSCULAR HEMOGLOBIN 29.7 pg (27.0-33.0); MEAN CORPUSCULAR HGB CONC 33.8 g/dL (32.0-36.0); MEAN CORPUSCULAR VOLUME 88.1 fL (79-99); MONOCYTES % (AUTO) 5.6 % (3.0-13.0); NEUTROPHILS % (AUTO) 77.5 % (40.0-77.0); PLATELET COUNT (AUTO) 209 K/uL (130-400); RED BLOOD CELL COUNT(AUTO) 4.27 MIL/uL (4.00-5.50); RED CELL DISTRIBUTION WIDTH 11.9 % (11.0-15.5); WHITE BLOOD COUNT (AUTO) 9.6 K/uL (4.8-10.8)
[2019-11-24 15:26] LABS: ALBUMIN 3.7 g/dL (3.5-5.0); BILIRUBIN,TOTAL 0.5 mg/dL (0.2-1.0); POTASSIUM 3.9 mmol/L (3.5-5.1); TOTAL PROTEIN, SERUM 7.2 g/dL (6.0-8.3)
== END 2019-11-24 16:26 | disposition home or self-care (01) ==
LOC: EDH 12:50
DX: I95.9 Hypotension, unspecified (principal); I25.10 Atherosclerotic heart disease of native coronary artery without angina pectoris; I10 Essential (primary) hypertension; E78.5 Hyperlipidemia, unspecified; E11.9 Type 2 diabetes mellitus without complications; K21.9 Gastro-esophageal reflux disease without esophagitis; Z88.1 Allergy status to other antibiotic agents; Z88.2 Allergy status to sulfonamides; Z90.49 Acquired absence of other specified parts of digestive tract; Z98.890 Other specified postprocedural states
CPT/HCPCS: 36415; 80053; 82550; 82948; 83605; 84484; 85025; 93005

== ENCOUNTER → 2019-12-28 | Outpatient (CLI) | payer MEDICARE | END | disposition home or self-care (01) | LOC: RAH 10:35 | PROVIDERS: ATTEND Internal Medicine Gastroenterology | DX: R10.12 Left upper quadrant pain (principal); R68.81 Early satiety | CPT/HCPCS: 78264; A9541 ==

== ENCOUNTER 2020-02-11 16:42 | Observation (INO) | payer MEDICARE ==
[2020-02-11 17:15] LABS: BASOPHILS % (AUTO) 0.7 % (0.0-5.0); EOSINOPHILS % (AUTO) 2.2 % (0.0-8.0); HEMATOCRIT 38.1 % (36-48); LYMPHOCYTES % (AUTO) 17.5 % (21.0-51.0); MEAN CORPUSCULAR HEMOGLOBIN 29.5 pg (27.0-33.0); MEAN CORPUSCULAR HGB CONC 34.1 g/dL (32.0-36.0); MEAN CORPUSCULAR VOLUME 86.6 fL (79-99); MONOCYTES % (AUTO) 7.2 % (3.0-13.0); NEUTROPHILS % (AUTO) 72.2 % (40.0-77.0); PLATELET COUNT (AUTO) 219 K/uL (130-400); RED CELL DISTRIBUTION WIDTH 12.1 % (11.0-15.5); WHITE BLOOD COUNT (AUTO) 9.1 K/uL (4.8-10.8)
[2020-02-11 17:30] LABS: CREATININE 0.8 mg/dL (0.5-1.5); POTASSIUM 3.6 mmol/L (3.5-5.1)
[2020-02-11 17:35] LABS: ALBUMIN 3.7 g/dL (3.5-5.0); BILIRUBIN,TOTAL 0.8 mg/dL (0.2-1.0); TOTAL PROTEIN, SERUM 7.2 g/dL (6.0-8.3)
[2020-02-11 18:12] LABS: APPEARANCE,URINE Clear (CLEAR); BILIRUBIN,URINE Negative (NEGATIVE); COLOR,URINE Yellow (YELLOW); GLUCOSE, URINE (UA) Negative (NEGATIVE); KETONES,URINE Negative (NEGATIVE); LEUKOCYTE ESTERASE ,URINE Large (NEGATIVE); NITRATE,URINE Negative (NEGATIVE); OCCULT BLOOD,URINE Negative (NEGATIVE); PROTEIN,URINE Negative (NEGATIVE)
[2020-02-11 18:24] LABS: BACTERIA,URINE Few /HPF (None Seen); RBC,URINE 0-1 /HPF (0-1)
[2020-02-11 18:25] LABS: SQUAMOUS EPITHELIAL CELL,UR Rare /HPF (0-2)
[2020-02-11] MEDS ORDERED: CEFTRIAXONE SODIUM 1 GM ONE (18:47)
[2020-02-11] MEDS ORDERED: SODIUM CHLORIDE 0.9% 100 ML IV ONE (18:48)
[2020-02-11 19:35] LABS: AMPHET/METH SCREEN,URINE NEGATIVE (NEGATIVE); BARBITURATE SCREEN, URINE NEGATIVE (NEGATIVE); BENZODIAZEPINES SCREEN,URINE NEGATIVE (NEGATIVE); CANNABINOID SCREEN,URINE NEGATIVE (NEGATIVE); COCAINE SCREEN,URINE NEGATIVE (NEGATIVE); OPIATE SCREEN,URINE NEGATIVE (NEGATIVE); PHENCYCLIDINE SCREEN,URINE NEGATIVE (NEGATIVE)
[2020-02-11] MEDS ORDERED: ACETAMINOPHEN 325 MG TAB PO PRN ×2 (20:15)
[2020-02-11] MEDS ORDERED: ONDANSETRON HCL 4 MG/2 ML VIAL IV PRN (20:15)
[2020-02-12 05:43] LABS: HEMATOCRIT 37.8 % (36-48); MEAN CORPUSCULAR HEMOGLOBIN 29.6 pg (27.0-33.0); MEAN CORPUSCULAR HGB CONC 34.1 g/dL (32.0-36.0); MEAN CORPUSCULAR VOLUME 86.7 fL (79-99); RED BLOOD CELL COUNT(AUTO) 4.36 MIL/uL (4.00-5.50); RED CELL DISTRIBUTION WIDTH 12.2 % (11.0-15.5); WHITE BLOOD COUNT (AUTO) 8.7 K/uL (4.8-10.8)
[2020-02-12 05:50] LABS: INR 1.06 (0.85-1.15); PROTHROMBIN TIME 11.4 SEC (9.6-11.6)
[2020-02-12 05:52] LABS: HEMOGLOBIN A1C 7.5 % (4.0-6.0)
[2020-02-12 06:08] LABS: ALANINE AMINOTRANSFERASE 8 U/L (12-78); ALBUMIN 3.2 g/dL (3.5-5.0); ASPARTATE AMINOTRANSFERASE 20 U/L (10-37); BILIRUBIN,TOTAL 1.1 mg/dL (0.2-1.0); CARBON DIOXIDE 26 mmol/L (21-32); CHLORIDE 110 mmol/L (101-111); CHOLESTEROL 108 mg/dL (<200); CREATINE KINASE, TOTAL 24 U/L (21-232); CREATININE 0.7 mg/dL (0.5-1.5); GLOMERULAR FILTR. RATE CALC 90 mL/min (>60); GLUCOSE,RANDOM 126 mg/dL (70-105); HDL CHOLESTEROL 22 mg/dL (35-85); LDL DIRECT 72 mg/dL (0-99); MYOGLOBIN 48 ng/mL (10-92); POTASSIUM 3.5 mmol/L (3.5-5.1); SODIUM SERUM 145 mmol/L (136-145); TOTAL PROTEIN, SERUM 6.7 g/dL (6.0-8.3); TRIGLYCERIDES 90 mg/dL (30-200); TROPONIN I < 0.04 ng/mL (0.00-0.06); UREA NITROGEN, BLOOD 12 mg/dL (7-18)
[2020-02-12] MEDS ORDERED: METOPROLOL SUCCINATE 50 MG TAB.SR.24H PO SCH (09:00)
[2020-02-12] MEDS ORDERED: ISOSORBIDE MONO 30MG TAB SR PO SCH (09:00)
[2020-02-12] MEDS ORDERED: GADODIAMIDE 10 MMOL/20 ML VIAL IV ONE (09:21)
[2020-02-12] MEDS ORDERED: CEPH500B PO (16:07)
--- NOTE | 2020-02-12 17:50 | NUR ---
CALLED PHARMACY SPOKE WITH CARMEN SAID NO FLU VACCINE AVAILABLE Addendum: 02/12/20 at 1615 by NORA EGAN RN RN Amended: Links added.
== END 2020-02-12 18:11 | disposition home or self-care (01) ==
LOC: EDH 16:42 → EDHIP 20:08
PROVIDERS: ADMIT Internal Medicine; ATTEND Internal Medicine
DX: R42 Dizziness and giddiness (principal); E11.65 Type 2 diabetes mellitus with hyperglycemia; N39.0 Urinary tract infection, site not specified; E78.5 Hyperlipidemia, unspecified; I10 Essential (primary) hypertension; I25.10 Atherosclerotic heart disease of native coronary artery without angina pectoris; K21.9 Gastro-esophageal reflux disease without esophagitis; Z95.5 Presence of coronary angioplasty implant and graft
CPT/HCPCS: 36415 ×2; 70450; 70553; 80053 ×2; 80061; 80305; 81001; 82140; 82550 ×2; 83036; 83874; 84484 ×2; 85025; 85027; 85610; 87088; 93005; 93306; 93880; A9579; G0378 ×22; J0696

== ENCOUNTER → 2020-07-09 | Outpatient (CLI) | payer MEDICARE ==
[~2020-07-09] MED LIST changes: +CEPH500B PO
== END | disposition home or self-care (01) ==
LOC: RAH 15:51
PROVIDERS: ATTEND Nurse Practitioner Family
DX: Z12.31 Encounter for screening mammogram for malignant neoplasm of breast (principal)
CPT/HCPCS: 77067

== ENCOUNTER → 2020-10-09 | Outpatient (CLI) | payer MEDICARE ==
[~2020-10-09] MED LIST changes: +ACET-66 PO; +AZIT500T4 PO; -ISOS30TA6 PO; +ISOS30TA92 PO; +METO-408 PO; +PANT40TA55 PO; +ROSU5TAB PO; +TRAM50TA4 PO
== END | disposition home or self-care (01) ==
LOC: SHCH 09:27
PROVIDERS: ATTEND Internal Medicine Cardiovascular Disease
DX: I65.23 Occlusion and stenosis of bilateral carotid arteries (principal); I70.293 Other atherosclerosis of native arteries of extremities, bilateral legs; R00.1 Bradycardia, unspecified
CPT/HCPCS: 93306; 93356; 93880; 93925

== ENCOUNTER 2020-10-13 05:53 | Observation (INO) | payer MEDICARE ==
[~2020-10-13] VITALS: Ht 149.9 cm; Wt 64.0 kg
[~2020-10-13 05:53] MED LIST changes: -ACET-66 PO; -AZIT500T4 PO; -METO-408 PO; -PANT40TA55 PO; -ROSU5TAB PO; -TRAM50TA4 PO
[2020-10-13] MEDS ORDERED: LORAZEPAM 2 MG/ML 1 ML VIAL ONE (06:20)
[2020-10-13 06:49] LABS: BASOPHILS % (AUTO) 0.7 % (0.0-5.0); EOSINOPHILS % (AUTO) 1.6 % (0.0-8.0); HEMATOCRIT 39.2 % (36-48); LYMPHOCYTES % (AUTO) 12.9 % (21.0-51.0); MEAN CORPUSCULAR HEMOGLOBIN 29.9 pg (27.0-33.0); MEAN CORPUSCULAR HGB CONC 33.7 g/dL (32.0-36.0); MEAN CORPUSCULAR VOLUME 88.9 fL (79-99); MONOCYTES % (AUTO) 6.3 % (3.0-13.0); NEUTROPHILS % (AUTO) 78.2 % (40.0-77.0); PLATELET COUNT (AUTO) 198 K/uL (130-400); RED BLOOD CELL COUNT(AUTO) 4.41 MIL/uL (4.00-5.50); RED CELL DISTRIBUTION WIDTH 12.1 % (11.0-15.5)
[2020-10-13] MEDS ORDERED: ORPHENADRINE CITRATE 30 MG/ML ML ONE (06:53)
[2020-10-13] MEDS ORDERED: KETOROLAC TROMETHAMINE 15MG/ML ONE (06:54)
[2020-10-13 07:01] LABS: CREATININE 0.9 mg/dL (0.5-1.5); CRP QUANTITATIVE 2.3 mg/L (0.00-9.0); POTASSIUM 3.9 mmol/L (3.5-5.1)
[2020-10-13] MEDS ORDERED: DiphenhydrAMINE HCL 50 MG/ML VIAL ONE ×2 (08:31→10:27)
[2020-10-13 10:42] LABS: APPEARANCE,URINE Clear (CLEAR); BILIRUBIN,URINE Negative (NEGATIVE); COLOR,URINE Yellow (YELLOW); GLUCOSE, URINE (UA) Negative (NEGATIVE); KETONES,URINE Negative (NEGATIVE); LEUKOCYTE ESTERASE ,URINE Small (NEGATIVE); NITRATE,URINE Negative (NEGATIVE); OCCULT BLOOD,URINE Negative (NEGATIVE); PH,URINE 7.5 (5.0-8.0); PROTEIN,URINE Negative (NEGATIVE)
[2020-10-13 10:55] LABS: BACTERIA,URINE Few /HPF (None Seen); RBC,URINE 0-1 /HPF (0-1)
[2020-10-13] MEDS ORDERED: ALBUTEROL SULFATE 0.083% 2.5 MG/3 ML INH IH PRN (14:15)
[2020-10-13] MEDS ORDERED: ONDANSETRON HCL 4 MG/2 ML VIAL IV PRN (14:15)
[2020-10-13] MEDS ORDERED: ACETAMINOPHEN 325 MG TAB PO PRN (14:15)
[2020-10-13] MEDS ORDERED: GUAIFENESIN-DM 200/20 MG 10 ML PO PRN (14:15)
[2020-10-13] MEDS: AZITHROMYCIN 500MG+NS 250ML 250 ML IV SCH (14:15)
[2020-10-13] MEDS ORDERED: GLUCAGON 1MG KIT 1 MG ML IM PRN (14:15)
[2020-10-13] MEDS ORDERED: DEXTROSE 50%-WATER 50 ML DISP.SYRIN IV PRN (14:15)
[2020-10-13] MEDS ORDERED: ACETAMINOPHEN-CODEINE 300/30MG TAB PO PRN (14:15)
[2020-10-13] MEDS ORDERED: HYDRALAZINE HCL 20 MG/ML VIAL IV PRN (14:15)
[2020-10-13 14:40] LABS: HEMOGLOBIN A1C 8.1 % (4.0-6.0)
[2020-10-13] MEDS ORDERED: SODIUM CHLORIDE 0.9% 250 ML IV ONE (16:11)
[2020-10-13] MEDS ORDERED: AZITHROMYCIN 500MG+NS 250ML 250 ML IV ONE (16:11)
[2020-10-13] MEDS: INSULIN HUMULIN R 100 UNIT/ML 3ML SQ SCH ×2 (16:30→21:00)
[2020-10-13] MEDS ORDERED: ACETAMINOPHEN 325 MG TAB ONE (18:48)
[2020-10-13] MEDS ORDERED: INSULIN HUMULIN R 100 UNIT/ML 3ML ONE (21:03)
[2020-10-14] VITALS: BP 129/56
[2020-10-14] MEDS ORDERED: METO-408 PO (01:10)
[2020-10-14] MEDS ORDERED: ROSU5TAB PO (01:10)
[2020-10-14] MEDS ORDERED: TRAM50TA4 PO (01:10)
[2020-10-14] MEDS ORDERED: PANT40TA55 PO (01:10)
[2020-10-14] MEDS ORDERED: PNEUMOCOCCAL VACCINE POLYVALENT 0.5 ML/VIAL [PPV] SQ ONE (02:15)
[2020-10-14 04:35] VITALS: BP 119/60
[2020-10-14 05:31] LABS: BASOPHILS % (AUTO) 0.6 % (0.0-5.0); EOSINOPHILS % (AUTO) 0.6 % (0.0-8.0); LYMPHOCYTES % (AUTO) 12.4 % (21.0-51.0); MEAN CORPUSCULAR HEMOGLOBIN 29.7 pg (27.0-33.0); MEAN CORPUSCULAR HGB CONC 33.3 g/dL (32.0-36.0); MEAN CORPUSCULAR VOLUME 89.2 fL (79-99); MONOCYTES % (AUTO) 5.5 % (3.0-13.0); NEUTROPHILS % (AUTO) 80.6 % (40.0-77.0); PLATELET COUNT (AUTO) 188 K/uL (130-400); RED BLOOD CELL COUNT(AUTO) 4.37 MIL/uL (4.00-5.50); RED CELL DISTRIBUTION WIDTH 12.1 % (11.0-15.5); WHITE BLOOD COUNT (AUTO) 11.5 K/uL (4.8-10.8)
[2020-10-14 05:44] LABS: CREATININE 0.8 mg/dL (0.5-1.5); POTASSIUM 3.6 mmol/L (3.5-5.1)
[2020-10-14] MEDS: INSULIN HUMULIN R 100 UNIT/ML 3ML SQ SCH ×3 (06:25→16:49)
[2020-10-14] MEDS ORDERED: ENOXAPARIN SODIUM 40 MG/0.4 ML SYRINGE SQ SCH (09:00)
[2020-10-14] MEDS ORDERED: PNEUMOCOCCAL VACCINE POLYVALENT 0.5 ML/VIAL [PPV] IM ONE (11:00)
[2020-10-14] MEDS: AZITHROMYCIN 500MG+NS 250ML 250 ML IV SCH (14:15)
[2020-10-14] MEDS ORDERED: ACET-66 PO (15:04)
[2020-10-14] MEDS ORDERED: AZIT500T4 PO (15:04)
== END 2020-10-14 17:41 | disposition home or self-care (01) ==
LOC: EDH 05:53 → EDHIP 14:05 → 3DH 22:50
PROVIDERS: ADMIT Family Medicine; ATTEND Family Medicine
DX: M54.2 Cervicalgia (principal); M62.838 Other muscle spasm; J18.9 Pneumonia, unspecified organism; D72.829 Elevated white blood cell count, unspecified; E11.9 Type 2 diabetes mellitus without complications; E78.5 Hyperlipidemia, unspecified; I10 Essential (primary) hypertension; I25.10 Atherosclerotic heart disease of native coronary artery without angina pectoris; K21.9 Gastro-esophageal reflux disease without esophagitis; M19.90 Unspecified osteoarthritis, unspecified site; Z90.49 Acquired absence of other specified parts of digestive tract; Z95.5 Presence of coronary angioplasty implant and graft; Z79.82 Long term (current) use of aspirin; Z79.84 Long term (current) use of oral hypoglycemic drugs; Z79.899 Other long term (current) drug therapy; Z88.2 Allergy status to sulfonamides; Z88.8 Allergy status to other drugs, medicaments and biological substances; Z88.6 Allergy status to analgesic agent
CPT/HCPCS: 36415 ×2; 70450; 71045; 72125; 80048 ×2; 81001; 82550; 82948 ×4; 83036; 83880; 84145; 84484; 85025 ×2; 86140; 93005; 94664; 96372; 97161; 99285; G0378 ×28; G8978; G8979; G8980; G8981; G8982; G8983; J0456; J1200 ×2; J1650; J1815 ×2; J1885; J2060; J2360; J7050

== ENCOUNTER 2020-12-08 07:42 | Day surgery (SDC) | payer MEDICARE ==
[2020-12-05 10:31] LABS: BASOPHILS % (AUTO) 0.8 % (0.0-5.0); EOSINOPHILS % (AUTO) 1.5 % (0.0-8.0); HEMATOCRIT 39.7 % (36-48); LYMPHOCYTES % (AUTO) 15.2 % (21.0-51.0); MEAN CORPUSCULAR HGB CONC 32.7 g/dL (32.0-36.0); MEAN CORPUSCULAR VOLUME 88.6 fL (79-99); MONOCYTES % (AUTO) 5.9 % (3.0-13.0); NEUTROPHILS % (AUTO) 76.3 % (40.0-77.0); PLATELET COUNT (AUTO) 196 K/uL (130-400); RED BLOOD CELL COUNT(AUTO) 4.48 MIL/uL (4.00-5.50); RED CELL DISTRIBUTION WIDTH 12.2 % (11.0-15.5); WHITE BLOOD COUNT (AUTO) 10.4 K/uL (4.8-10.8)
[2020-12-05 10:40] LABS: CREATININE 0.8 mg/dL (0.5-1.5); POTASSIUM 4.7 mmol/L (3.5-5.1)
[2020-12-05 10:43] LABS: INR 1.1 (0.85-1.15); PROTHROMBIN TIME 11.9 SEC (9.6-11.6)
[2020-12-05 11:39] VITALS: BP 128/73
[~2020-12-08] VITALS: Ht 149.9 cm; Wt 62.2 kg
[2020-12-08] VITALS (16 sets, daily range): BP systolic 96–155; BP diastolic 49–74
[~2020-12-08 07:42] MED LIST changes: -ASPI-1012 PO; +ASPI-1443 PO; -CEPH500B PO; -ISOS30TA92 PO; -LUBI24CA2 PO; -METO-391 PO; +METO-408 PO; +ROSU5TAB PO
[2020-12-08] MEDS ORDERED: 0.9%NACL 1000ML 1,000 ML IV ONE (08:52)
[2020-12-08] MEDS ORDERED: FENTANYL CITRATE PF 50 MCG/1 ML 2ML VIAL ONE (10:59)
[2020-12-08] MEDS ORDERED: LIDOCAINE HCL 2% VISCOUS 15 ML UDCUP ONE (10:59)
[2020-12-08] MEDS ORDERED: MIDAZOLAM HCL 1 MG/ML 2ML VIAL ONE (11:00)
== END 2020-12-08 12:50 | disposition home or self-care (01) ==
LOC: DAH 07:42
PROVIDERS: ATTEND Internal Medicine Cardiovascular Disease
DX: Q21.1 Atrial septal defect (principal); I25.10 Atherosclerotic heart disease of native coronary artery without angina pectoris; I34.0 Nonrheumatic mitral (valve) insufficiency; I25.3 Aneurysm of heart; K21.9 Gastro-esophageal reflux disease without esophagitis; I10 Essential (primary) hypertension; E11.9 Type 2 diabetes mellitus without complications; E66.9 Obesity, unspecified; E78.5 Hyperlipidemia, unspecified; Z90.49 Acquired absence of other specified parts of digestive tract; Z98.891 History of uterine scar from previous surgery; Z95.5 Presence of coronary angioplasty implant and graft; Z86.73 Personal history of transient ischemic attack (TIA), and cerebral infarction without residual deficits; Z79.82 Long term (current) use of aspirin; Z79.01 Long term (current) use of anticoagulants; Z88.2 Allergy status to sulfonamides; Z82.3 Family history of stroke; Z82.49 Family history of ischemic heart disease and other diseases of the circulatory system; Z83.3 Family history of diabetes mellitus; Z79.899 Other long term (current) drug therapy; Z68.27 Body mass index [BMI] 27.0-27.9, adult
CPT/HCPCS: 36415; 80048; 82948 ×2; 85025; 85610; 85730; 93312; 93325; A4215; A4216; A4221; A4222; A4223 ×3; A4606; A4657; A4663; J2250; J3010; J7030; 93313; 99152

== ENCOUNTER → 2023-01-07 | Outpatient (CLI) | payer OTHER, MEDICARE ==
[~2023-01-07] MED LIST changes: +ASPI-1197 PO; +CEPH500B PO; +CLOP-31 PO; -CLOP75TA14 PO; +CYCL-309 PO; -INSU100I21 SQ; +INSU100I22 SQ; +LIDOP TP; +LISI2.5T13 PO; -LISI2.5T2 PO; +LISI20TA PO; +NAPR500T6 PO; +PANT40TA PO; +POLY17PO4 PO; +TRAM50TA4 PO
== END | disposition home or self-care (01) ==
LOC: RAH 06-24 14:00
PROVIDERS: ATTEND Obstetrics & Gynecology
DX: Z12.31 Encounter for screening mammogram for malignant neoplasm of breast (principal)
CPT/HCPCS: 77067

== ENCOUNTER → 2023-11-24 | Outpatient (CLI) | payer OTHER, MEDICARE ==
[~2023-11-24] MED LIST changes: -ESOM40CA54 PO; +ESOM40CA66 PO
== END | disposition home or self-care (01) ==
LOC: RAH 09:39
PROVIDERS: ATTEND Nurse Practitioner Family
DX: Z12.31 Encounter for screening mammogram for malignant neoplasm of breast (principal); R92.323 Mammographic fibroglandular density, bilateral breasts
CPT/HCPCS: 77067

== ENCOUNTER → 2024-01-12 | Outpatient (CLI) | payer OTHER, MEDICARE | END | disposition home or self-care (01) | LOC: RAH 13:12 | PROVIDERS: ATTEND Nurse Practitioner Family | DX: M85.88 Other specified disorders of bone density and structure, other site (principal); M81.0 Age-related osteoporosis without current pathological fracture | CPT/HCPCS: 77080 ==

== ENCOUNTER → 2024-11-26 | Outpatient (CLI) | payer OTHER, MEDICAID ==
[~2024-11-26] MED LIST changes: +NAPR-1506 PO; -NAPR500T6 PO
--- NOTE | 2024-11-27 09:29 | HMCIMG ---
MAMMO SCREENING BILATERAL HISTORY: Screening mammogram. COMPARISON: 11/26/2024 TECHNIQUE: Bilateral screening mammogram with CAD was performed with craniocaudal and mediolateral oblique projections. FINDINGS: There are scattered areas of fibroglandular density. There is no evidence of a dominant mass, or suspicious microcalcification. Vascular calcifications are seen. There is no evidence of nipple retraction or skin thickening. IMPRESSION: 1. Stable mammogram. Patient was entered into a reminder system with a target due date for their next mammogram. BI-RADS: CATEGORY 2: BENIGN FINDINGS Recommend monthly self breast exam as well as annual clinical examination. A negative x-ray should not delay biopsy if a dominant or clinically suspicious mass is present, since 8-10% of cancers are not identified by mammography. Dense breasts particularly, may obscure an underlying neoplasm. Some of these may be detected clinically and therefore, clinical examination is an essential part of breast evaluation.
== END | disposition home or self-care (01) ==
LOC: RAH 13:04
PROVIDERS: ATTEND Nurse Practitioner Family
DX: Z12.31 Encounter for screening mammogram for malignant neoplasm of breast (principal); R92.323 Mammographic fibroglandular density, bilateral breasts; R92.1 Mammographic calcification found on diagnostic imaging of breast
CPT/HCPCS: 77067

== ENCOUNTER 2025-03-11 21:01 | Emergency (ER) | payer OTHER, MEDICAID ==
[~2025-03-11] VITALS: Ht 149.9 cm; Wt 57.2 kg
[~2025-03-11 21:01] MED LIST changes: -ASPI-1443 PO; +CEFD300C3 PO; -CEPH500B PO; -CYCL-309 PO; +CYCL5TAB3 PO; -ESOM40CA66 PO; -INSU100I22 SQ; +LACT-441 PO; +LIDO1ADH71 TP; -LIDOP TP; -LISI20TA PO; +MEMA10TA21 PO; -METO-408 PO; -NAPR-1506 PO; -POLY17PO4 PO; +ROSU10TA72 PO; -ROSU5TAB PO; -TRAM50TA4 PO
--- NOTE | 2025-03-11 21:41 | ERN ---
ED Note History of Present Illness Stated Complaint: ALLERGIC REACTION Chief Complaint: Painful Urination Time Seen by MD: 21:10 Dictation: 69-year-old female presents to ER complaints of burning with urination and frequency. Patient denies any fever or back pain. Allergies: Coded Allergies: trimethoprim (Unverified Allergy, Severe, BREATHING & SWELLING OF THROAT, 08/17/19) Sulfa (Sulfonamide Antibiotics) (Verified Allergy, Unknown, 08/21/15) sulfacetamide (Unverified Allergy, Unknown, 09/22/22) sulfamethoxazole (Unverified Allergy, Unknown, BREATHING & SWELLING OF THROAT, 08/21/15) tramadol (Unverified Allergy, Unknown, 09/22/22) ketorolac (Unverified Adverse Reaction, Intermediate, HALLUCINATIONS, 10/14/20) lorazepam (Unverified Adverse Reaction, Intermediate, HALLUCINATIONS, 10/14/20) Home Meds Active Scripts Miconazole Nitrate (Miconazole Nitrate) 2 % Cream.appl, 1 TOM VG HS for 7 Days, #30 GM 0 Refills Prov:JORGE SAUCEDO NP 03/11/25 Cefdinir (Cefdinir) 300 Mg Capsule, 1 CAP PO BID for 7 Days, #14 CAP 0 Refills Prov:MANUELA PEREZ MD 03/05/25 Lidocaine (Lidocaine Pain Relief) 4 % Adh..patch, 1 EACH TP DAILY for 14 Days, #14 ADH.PATCH 1 Refill Prov:MANUELA PEREZ MD 03/05/25 Pantoprazole Sodium (Protonix) 40 Mg Tablet.dr, 40 MG PO DAILY, #30 TAB 0 Refills Prov:DEL CID MD 12/18/20 Reported Medications Lactulose (Lactulose) 10 Gram/15 Ml Solution, 30 ML PO BID PRN for CONSTIPATION, #900 ML 0 Refills 02/27/25 Cyclobenzaprine HCl (Cyclobenzaprine HCl) 5 Mg Tablet, 5 MG PO TID PRN for PAIN, TAB 02/27/25 Lisinopril (Lisinopril) 2.5 Mg Tablet, 2.5 MG PO DAILY, TAB 02/27/25 Memantine HCl (Memantine HCl) 10 Mg Tablet, 10 MG PO BID, TAB 02/27/25 Rosuvastatin Calcium (Rosuvastatin Calcium) 10 Mg Tablet, 20 MG PO HS, TAB 02/27/25 Aspirin (Aspirin) 81 Mg Tab.chew, 81 MG PO DAILY, TAB.CHEW 12/15/20 Clopidogrel Bisulfate (Plavix) 75 Mg Tablet, 75 MG PO DAILY, TAB 10/16/19 Past Medical History Past Medical History: Diabetes-Type II, High Cholesterol, Hypertension Additional Past Medical Hx: GASTROPARESIS Surgical History: None Surgical History Other: CARDIAC STENTS X 3 Review of System Dictation CONSTITUTIONAL: NEGATIVE FOR FEVER,CHILLS, AND WEIGHT LOSS EYES: NEGATIVE FOR INJURY, PAIN,REDNESS, AND DISCHARGE ENT: NEGATIVE FOR INJURY,PAIN OR SWELLING CARDIOVASCULAR: NEGATIVE FOR CHEST PAIN, PALPITATIONS, AND EDEMA RESPIRATORY: NEGATIVE FOR SHORTNESS OF BREATH, COUGH, WHEEZING, AND PLEURITIC CHEST PAIN ABDOMEN/GI: NEGATIVE FOR ABDOMINAL PAIN, NAUSEA, VOMITING AND DIARRHEA. BACK: NEGATIVE FOR PAIN OR INJURY : Positive for burning and frequency with urination MS/EXTREMITY: NEGATIVE FOR INJURY AND DEFORMITY SKIN: NEGATIVE FOR RASH, AND DISCOLORATION NEURO: NEGATIVE FOR HEADACHE, WEAKNESS, NUMBNESS, TINGLING, AND SEIZURE PSYCH: NEGATIVE FOR SUICIDE IDEATION, HOMICIDAL IDEATION, AND HALLUCINATIONS ALLERGY/IMMUNOLOGY: NEGATIVE FOR HIVES, RASH, AND ALLERGIES ALL SYSTEMS NEGATIVE, EXCEPT NOTED ABOVE. 13 POINT REVIEW OF SYSTEMS ASSESSED AND ALL NEGATIVE EXCEPT FOR ABOVE. Initial Vital Sign VS Vital Signs Date Time Temp Pulse Resp B/P (MAP) Pulse Ox O2 Delivery O2 Flow Rate FiO2 03/11/25 21:05 98.1 65 18 173/75 98 03/11/25 22:59 Room Air* 0 21 Physical Exam Dictation General: awake, alert, NAD Head/Face: Normocephalic, atraumatic Eyes: PERRL, EOMI, vision at baseline ENT: oral cavity clear, TMs clear, no signs of infection Neck: Trachea midline, supple, no nuchal rigidity Cardiovascular: RRR, normal S1/S2 Respiratory: CTAB, no respiratory distress, No rales or wheezes Abdomen: Soft, non-tender, non-distended, normal bowel sounds, no guarding or rebound. Skin: Warm, dry, normal turgor, no rash. irritation noted to labia majoras MS/Extremity: Pulses equal, no cyanosis, neurovascular intact, FROM Neuro: COAx4, GCS 15, strength 5/5, CN 2-12 intact, normal cerebellar exam, normal gait, Psych: Normal behavior, mood, and affect normal Results (Laboratory/Radiology) Laboratory/Radiology Laboratory Tests Test 03/11/25 21:30 03/11/25 21:50 Urine Color COLORLESS (YELLOW) Urine Appearance CLEAR (CLEAR) Urine pH 6.5 (5.0-8.0) Urine Specific [place] 1.004 (1.001-1.031) Urine Protein NEGATIVE mg/dL (NEGATIVE) Urine Glucose (UA) NEGATIVE mg/dL (NEGATIVE) Urine Ketones NEGATIVE mg/dL (NEGATIVE) Urine Occult Blood NEGATIVE (NEGATIVE) Urine Nitrate NEGATIVE (NEGATIVE) Urine Bilirubin NEGATIVE mg/dL (NEGATIVE) Urine Urobilinogen 0.2 mg/dL (0.2-1.0) Urine Leukocyte Esterase NEGATIVE Yi/uL White Blood Count 11.8 K/uL (4.8-10.8) H Red Blood Count 3.81 MIL/uL (4.00-5.50) L Hemoglobin 11.4 g/dL (12.0-16.0) L Hematocrit 34.3 % (36-48) L Mean Corpuscular Volume 90.0 fL (79-99) Mean Corpuscular Hemoglobin 29.9 pg (27.0-33.0) Mean Corpuscular Hemoglobin Concent 33.2 g/dL (32.0-36.0) Red Cell Distribution Width 12.8 % (11.0-15.5) Platelet Count 272 K/uL (130-400) Mean Platelet Volume 11.0 fL (7.5-10.5) H Immature Granulocyte % (Auto) 0.5 % (0-1) Neutrophils (%) (Auto) 75.0 % (40.0-77.0) Lymphocytes (%) (Auto) 14.3 % (21.0-51.0) L Monocytes (%) (Auto) 8.1 % (3.0-13.0) Eosinophils (%) (Auto) 1.8 % (0.0-8.0) Basophils (%) (Auto) 0.3 % (0.0-5.0) Neutrophils # (Auto) 8.8 K/uL (1.8-7.7) H Lymphocytes # (Auto) 1.7 K/uL (1.0-4.8) Monocytes # (Auto) 1.0 K/uL (0.1-1.0) Eosinophils # (Auto) 0.21 K/uL (0.00-0.70) Basophils # (Auto) 0.04 K/uL (0.00-0.20) Absolute Immature Granulocyte (auto 0.06 K/uL (0-1) Nucleated Red Blood Cells 0.0 % (0.0-0.19) Sodium Level 139 mmol/L (136-145) Potassium Level 3.9 mmol/L (3.5-5.1) Chloride Level 103 mmol/L (101-111) Carbon Dioxide Level 27 mmol/L (21-32) Blood Urea Nitrogen 13 mg/dL (7-18) Creatinine 0.8 mg/dL (0.5-1.0) Glomerular Filtration Rate Calc 80 mL/min (>90) Random Glucose 98 mg/dL (70-105) Total Calcium 8.5 mg/dL (8.5-10.1) ED Course ED Course Orders Procedure Category Date Status Time Urinalysis Profile LAB 03/11/25 Complete 21:35 Cbc With Differential LAB 03/11/25 Complete 21:35 Basic Metabolic Panel LAB 03/11/25 Complete 21:35 Vital Signs Date Time Temp Pulse Resp B/P (MAP) Pulse Ox O2 Delivery O2 Flow Rate FiO2 03/11/25 22:59 98.1 68 16 162/74 98 Room Air* 0 21 03/11/25 21:05 98.1 65 18 173/75 98 Medical Decision Making MDM MDM: Differential diagnosis: uti, pyelonephritis, cystitis Rationale: Tests considered and ordered secondary to shared decision making include: labs, ECG and radiology Previous outside records reviewed: Old ER visits. Risk of complication and/or morbidity or mortality of patient management: None Medications-Per medication reconciliation Need for hospitalization: Patient does NOT meet criteria for hospitalization. Need for emergency major/minor surgery: No There are no social concerns with this patient. Prescription drug management Prescriptions will include symptomatic care Patient's prior external medical records from other ER visits were reviewed by me as indicated. Prior testing and results from previous visits were reviewed. Prior tests were taken into account with medical decision making and resource utilization, independent historian/historians were used to obtain complete medical history. I independently interpreted the test that were performed, results were reviewed by me and considered findings on radiology if ordered. Patient VSS, NAD, nontoxic, stable for discharge. Pt given discharge instructions in layman terms and understood, all questions answered. Pt will follow up with PCP and return to the ER if worse. DX & DISP Disposition: Discharge Departure Impression: Primary Impression: Vaginitis Additional Impression: Dysuria Condition: Stable Scripts Miconazole Nitrate (Miconazole Nitrate) 2 % Cream.appl 1 TOM VG HS for 7 Days, #30 GM 0 Refills Prov: JORGE SAUCEDO NP 03/11/25 Additional Instructions: FOLLOW-UP WITH YOUR PCP IN 24-72 HOURS AND IN THE EVENT IF SYMPTOMS WORSEN OR AN EMERGENCY OVERNIGHT REPORT TO THE ED IMMEDIATELY Referrals: ESTEFANY MARK (PCP) ATTESTATION BY PHYSICIAN I PERFORMED THE SUBSTANTIVE PORTION OF THE VISIT. I HAVE REVIEWED AND PERSONALLY MADE AND APPROVED THE MANAGEMENT PLAN THAT IS DOCUMENTED IN THE NOTE BY MYSELF FOR THE A PP. JORGE SAUCEDO NP Mar 11, 2025 21:41 JELANI LANDEROS MD Mar 12, 2025 19:21
[2025-03-11 21:51] LABS: APPEARANCE,URINE CLEAR (CLEAR); GLUCOSE, URINE (UA) NEGATIVE (NEGATIVE); LEUKOCYTE ESTERASE ,URINE NEGATIVE Leu/uL (NEGATIVE); NITRATE,URINE NEGATIVE (NEGATIVE); OCCULT BLOOD,URINE NEGATIVE (NEGATIVE)
[2025-03-11 21:55] LABS: ADD UA MICROSCOPIC NO
[2025-03-11 21:56] LABS: IMMATURE GRANULOCYTE ABSOLUTE 0.06 K/uL (0-1); NUCLEATED RED BLOOD CELLS 0.0 % (0.0-0.19); PLATELET COUNT (AUTO) 272 K/uL (130-400); RED BLOOD CELL COUNT(AUTO) 3.81 MIL/uL (4.00-5.50); RED CELL DISTRIBUTION WIDTH 12.8 % (11.0-15.5); WHITE BLOOD COUNT (AUTO) 11.8 K/uL (4.8-10.8)
[2025-03-11 22:03] LABS: CREATININE 0.8 mg/dL (0.5-1.0); GLOMERULAR FILTR. RATE CALC 80.0 mL/min (>90); GLUCOSE,RANDOM 98.0 mg/dL (70-105); SODIUM SERUM 139.0 mmol/L (136-145); UREA NITROGEN, BLOOD 13.0 mg/dL (7-18)
[2025-03-11] MEDS ORDERED: MICO45CR44 VG (22:44)
[2025-03-11 22:59] VITALS: BP 162/74; PULSE 68; RESP 16; TEMP 98.1; O2SAT 98
== END 2025-03-11 23:00 | disposition home or self-care (01) ==
LOC: EDH 21:01
DX: N76.0 Acute vaginitis (principal); R30.0 Dysuria; E11.43 Type 2 diabetes mellitus with diabetic autonomic (poly)neuropathy; E78.00 Pure hypercholesterolemia, unspecified; I10 Essential (primary) hypertension; K31.84 Gastroparesis; Z79.02 Long term (current) use of antithrombotics/antiplatelets; Z79.82 Long term (current) use of aspirin; Z79.899 Other long term (current) drug therapy; Z88.1 Allergy status to other antibiotic agents; Z88.2 Allergy status to sulfonamides; Z88.5 Allergy status to narcotic agent; Z95.5 Presence of coronary angioplasty implant and graft
CPT/HCPCS: 36415; 80048; 81003; 85025; 99283

== ENCOUNTER 2025-04-01 06:21 | Emergency (ER) | payer OTHER, MEDICAID ==
[~2025-04-01] VITALS: Ht 149.9 cm; Wt 50.8 kg
[~2025-04-01 06:21] MED LIST changes: +MICO45CR44 VG; -ROSU10TA72 PO; +ROSU10TA98 PO
--- NOTE | 2025-04-01 06:59 | ERN ---
General Chief Complaint: Multiple Complaints Stated Complaint: GEN BODY WEAKNESS, UNABLE TO AMBULATE Time Seen by MD: 06:30 History of Present Illness Initial Comments Patient is a 69-year-old female who finds that she feels very weak, so weak that she can not even walk. She states that she has no other symptoms no fevers no cough no signs of infection no change in urination. Her also states that nothing has changed in the last day or so beyond the symptoms of feeling weak. Patient has been eating well drinking water well has not changed any of her medications and has no other symptoms. Timing/Duration: 24 hours Allergies: Coded Allergies: trimethoprim (Unverified Allergy, Severe, BREATHING & SWELLING OF THROAT, 08/17/19) Sulfa (Sulfonamide Antibiotics) (Verified Allergy, Unknown, 08/21/15) sulfacetamide (Unverified Allergy, Unknown, 09/22/22) sulfamethoxazole (Unverified Allergy, Unknown, BREATHING & SWELLING OF THROAT, 08/21/15) tramadol (Unverified Allergy, Unknown, 09/22/22) ketorolac (Unverified Adverse Reaction, Intermediate, HALLUCINATIONS, 10/14/20) lorazepam (Unverified Adverse Reaction, Intermediate, HALLUCINATIONS, 10/14/20) Home Meds Active Scripts Miconazole Nitrate (Miconazole Nitrate) 2 % Cream.appl, 1 TOM VG HS for 7 Days, #30 GM 0 Refills Prov:JORGE ASUCEDO POKER MANAGER 03/11/25 Cefdinir (Cefdinir) 300 Mg Capsule, 1 CAP PO BID for 7 Days, #14 CAP 0 Refills Prov:MANUELA PEREZ MD 03/05/25 Lidocaine (Lidocaine Pain Relief) 4 % Adh..patch, 1 EACH TP DAILY for 14 Days, #14 ADH.PATCH 1 Refill Prov:MANUELA PEREZ MD 03/05/25 Pantoprazole Sodium (Protonix) 40 Mg Tablet.dr, 40 MG PO DAILY, #30 TAB 0 Refills Prov:DEL CID MD 12/18/20 Reported Medications Lactulose (Lactulose) 10 Gram/15 Ml Solution, 30 ML PO BID PRN for CONSTIPATION, #900 ML 0 Refills 02/27/25 Cyclobenzaprine HCl (Cyclobenzaprine HCl) 5 Mg Tablet, 5 MG PO TID PRN for PAIN, TAB 02/27/25 Lisinopril (Lisinopril) 2.5 Mg Tablet, 2.5 MG PO DAILY, TAB 02/27/25 Memantine HCl (Memantine HCl) 10 Mg Tablet, 10 MG PO BID, TAB 02/27/25 Rosuvastatin Calcium (Rosuvastatin Calcium) 10 Mg Tablet, 20 MG PO HS, TAB 02/27/25 Aspirin (Aspirin) 81 Mg Tab.chew, 81 MG PO DAILY, TAB.CHEW 12/15/20 Clopidogrel Bisulfate (Plavix) 75 Mg Tablet, 75 MG PO DAILY, TAB 10/16/19 Past Medical History Past Medical History: CAD, Diabetes-Type II, High Cholesterol, Hypertension Medical History Other: GASTROPARESIS Past Surgical History: None Surgical History Other: CARDIAC STENTS X 3 Constitutional: (-) chills, (-) diaphoresis, (-) fever, (-) malaise, (-) weakness, (-) other documentation EENTM: (-) eye pain, (-) blurred vision, (-) tearing, (-) double vision, (-) ear pain, (-) ear discharge, (-) nose pain, (-) nose congestion, (-) throat pain, (-) Throat swelling, (-) mouth pain, (-) tooth pain, (-) mouth swelling, (-) other documentation Respiratory: (-) cough, (-) orthopnea, (-) short of breath, (-) stridor, (-) wheezing, (-) other documentation Cardiovascular: (-) chest pain, (-) edema, (-) palpitations, (-) syncope, (-) dyspnea on exertion, (-) other documentation Gastrointestinal/Abdominal: (-) nausea, (-) vomiting, (-) diarrhea, (-) abdominal pain, (-) abdominal distention, (-) constipation, (-) rectal bleeding, (-) dark stool/melena, (-) other documentation Genitourinary: (-) vaginal discharge, (-) vaginal bleeding, (-) dysuria, (-) frequency, (-) hematuria, (-) pain, (-) other documentation Musculoskeletal: (-) Neck pain, (-) back pain, (-) Flank Pain, (-) joint pain, (-) joint swelling, (-) muscle pain, (-) muscle stiffness, (-) gout, (-) other documentation Skin: (-) laceration, (-) contusion, (-) abrasion, (-) abscess, (-) rash, (-) change in color, (-) change in hair, (-) change in nails, (-) diaphoresis, (-) dryness, (-) other documentation Neuro: (-) altered mental status, (-) headache, (-) syncope, (-) paralysis, (-) numbness, (-) seizure, (-) pre-existing deficit, (-) tremors, (-) weakness, (-) dizziness, (-) slurred speech, (-) vertigo, (-) other documentation Physical Exam General Appearance: (+) mild distress Orientation: (+) alert, (+) oriented x 3 Head/Face Trauma: No Eye: bilateral eye normal inspection, bilateral eye PERRL, bilateral eye EOMI Ear, Nose, Throat: (+) hearing grossly normal, (+) normal ENT inspection, (+) moist mucous membraine Neck: (+) normal inspection, (+) supple, (+) full range of motion Respiratory: (+) chest non-tender, (+) lungs clear, (+) well ventilated Heart: (+) regular, (+) no gallop, (+) murmur Vascular: (+) no edema, (+) normal peripheral pulse Gastrointestinal: (+) soft, (+) non-tender, (+) no organomegaly, (+) bowel sound present Results Laboratory and Microbiology Lab and Micro Result Laboratory Tests Test 04/01/25 06:44 04/01/25 08:35 04/01/25 10:18 04/01/25 11:15 White Blood Count 8.7 K/uL (4.8-10.8) Red Blood Count 4.40 MIL/uL (4.00-5.50) Hemoglobin 13.4 g/dL (12.0-16.0) Hematocrit 41.0 % (36-48) Mean Corpuscular Volume 93.2 fL (79-99) Mean Corpuscular Hemoglobin 30.5 pg (27.0-33.0) Mean Corpuscular Hemoglobin Concent 32.7 g/dL (32.0-36.0) Red Cell Distribution Width 13.7 % (11.0-15.5) Platelet Count 172 K/uL (130-400) Mean Platelet Volume 11.8 fL (7.5-10.5) H Immature Granulocyte % (Auto) 0.5 % (0-1) Neutrophils (%) (Auto) 69.3 % (40.0-77.0) Lymphocytes (%) (Auto) 19.8 % (21.0-51.0) L Monocytes (%) (Auto) 7.5 % (3.0-13.0) Eosinophils (%) (Auto) 2.2 % (0.0-8.0) Basophils (%) (Auto) 0.7 % (0.0-5.0) Neutrophils # (Auto) 6.0 K/uL (1.8-7.7) Lymphocytes # (Auto) 1.7 K/uL (1.0-4.8) Monocytes # (Auto) 0.7 K/uL (0.1-1.0) Eosinophils # (Auto) 0.19 K/uL (0.00-0.70) Basophils # (Auto) 0.06 K/uL (0.00-0.20) Absolute Immature Granulocyte (auto 0.04 K/uL (0-1) Nucleated Red Blood Cells 0.0 % (0.0-0.19) Sodium Level 145 mmol/L (136-145) Potassium Level 3.6 mmol/L (3.5-5.1) Chloride Level 107 mmol/L (101-111) Carbon Dioxide Level 28 mmol/L (21-32) Blood Urea Nitrogen 14 mg/dL (7-18) Creatinine 0.8 mg/dL (0.5-1.0) Glomerular Filtration Rate Calc 80 mL/min (>90) Random Glucose 113 mg/dL (70-105) H Total Calcium 8.8 mg/dL (8.5-10.1) Total Bilirubin 0.9 mg/dL (0.2-1.0) Aspartate Amino Transf (AST/SGOT) 29 U/L (10-37) Alanine Aminotransferase (ALT/SGPT) 35 U/L (12-78) Alkaline Phosphatase 116 U/L (50-136) Troponin I High Sensitivity 6 ng/L (4-50) 7 ng/L (4-50) Total Protein 6.7 g/dL (6.0-8.3) Albumin 4.0 g/dL (3.5-5.0) Procalcitonin < 0.05 ng/mL (0.05-0.5) L Influenza Type A Antigen Negative For Type A Influenza Type B Antigen Negative For Type B SARS-CoV-2 Antigen (Rapid) PRESUMPTIVE NEGATIVE Group A Streptococcus Rapid negative (NEGATIVE) Urine Color COLORLESS (YELLOW) Urine Appearance CLEAR (CLEAR) Urine pH 7.0 (5.0-8.0) Urine Specific [place] 1.006 (1.001-1.031) Urine Protein NEGATIVE mg/dL (NEGATIVE) Urine Glucose (UA) NEGATIVE mg/dL (NEGATIVE) Urine Ketones NEGATIVE mg/dL (NEGATIVE) Urine Occult Blood NEGATIVE (NEGATIVE) Urine Nitrate NEGATIVE (NEGATIVE) Urine Bilirubin NEGATIVE mg/dL (NEGATIVE) Urine Urobilinogen 0.2 mg/dL (0.2-1.0) Urine Leukocyte Esterase NEGATIVE Yi/uL MDM MDM: Differential diagnosis: New onset infection, UTI, sepsis, anemia, hypoglycemia, hypovolemia Rationale: Tests considered and ordered secondary to shared decision making include: Previous outside records reviewed: Old ER visits. Risk of complication and/or morbidity or mortality of patient management: None Medications-Per medication reconciliation Need for hospitalization: Patient does meet criteria for hospitalization. Need for emergency major/minor surgery: No There are no social concerns with this patient. Prescription drug management Prescriptions will include symptomatic care Patient's prior external medical records from other ER visits were reviewed by me as indicated. Prior testing and results from previous visits were reviewed. Prior tests were taken into account with medical decision making and resource utilization, independent historian/historians were used to obtain complete medical history. I independently interpreted the test that were performed, results were reviewed by me and considered findings on radiology if ordered. Dr. Burr I took over care at 7:00 a.m.. Patient's vital signs are stable Clinical exam is unremarkable Orthopedic vital signs are normal Your labs are normal EKG is normal The CT scan of her head is normal Patient received IV fluids Patient had a prolonged stay in the ER pending the CT scan read. She was also feeling quite weak and was unsure about whether she wanted to leave or not. After some hours I did offer the patient admission for observation physical therapy, but she reports she feels better. She is able to ambulate throughout the ER able to walk to the restroom. This point in time I do not see any life threats. We will DC. ED Course Orders Procedure Category Date Status Time 12 Lead Ekg Tracing- EKG 04/01/25 Complete Technical 06:41 Comprehensive LAB 04/01/25 Complete Metabolic Panel 06:46 Cbc With Differential LAB 04/01/25 Complete 06:46 Urinalysis Profile LAB 04/01/25 Complete 06:46 Troponin I High LAB 04/01/25 Complete Sensitivity 06:46 Ct Head/Brain W/O CT 04/01/25 Taken Contrast 06:46 Procalcitonin LAB 04/01/25 Complete 06:59 Rapid (Group A Strep) LAB 04/01/25 Complete 06:59 Influenza Type A & B, LAB 04/01/25 Complete Rapid 06:59 Covid19 (Sars Antigen LAB 04/01/25 Complete Rapid) 06:59 Lactated Ringers PHA 04/01/25 Complete 1000ml (Lactated 06:59 Troponin I High LAB 04/01/25 Complete Sensitivity 10:55 Current Medications Medications (Trade) Dose Ordered Sig/Kareem Route PRN Reason Start Time Stop Time Status Last Admin Dose Admin Lactated Ringer's (Lactated Ringers 1000ml) 1,000 ml BOLUS STAT IV 04/01/25 06:59 04/01/25 07:03 DC 04/01/25 07:35 Vital Signs Date Time Temp Pulse Resp B/P (MAP) Pulse Ox O2 Delivery O2 Flow Rate FiO2 04/01/25 12:22 98.6 68 10 119/72 98 Room Air* 0 04/01/25 10:35 98.6 65 18 128/65 99 Room Air* 0 21 04/01/25 09:20 98.6 60 18 147/70 99 Room Air* 0 21 04/01/25 08:02 98.6 65 18 157/74 99 Room Air* 0 21 04/01/25 06:29 98.6 66 18 164/74 99 Room Air* 0 21 04/01/25 06:23 98.6 66 18 164/74 99 Room Air 0 DX & DISP Disposition: Discharge Departure Impression: Primary Impression: Generalized weakness Condition: Stable Additional Instructions: There are no dangerous findings on your workup here today. Your vital signs has been stable here in the emergency department. Your blood work is normal. Your urinalysis is normal. The CT scan of your brain is normal. You received IV fluids. As we discussed, drink plenty of liquids. Eat a well-balanced diet. Get plenty of sleep. Monitor for any further symptoms. If you have any concerns please return to the emergency department. Otherwise I recommend that you follow up with your primary doctor in 2-3 days for re- evaluation. Referrals: ESTEFANY MARK (PCP) PREETI HORN MD Apr 01, 2025 06:59 ALBA BURR DO Apr 01, 2025 12:51
[2025-04-01 07:08] LABS: IMMATURE GRANULOCYTE ABSOLUTE 0.04 K/uL (0-1); NUCLEATED RED BLOOD CELLS 0.0 % (0.0-0.19); PLATELET COUNT (AUTO) 172 K/uL (130-400); RED BLOOD CELL COUNT(AUTO) 4.40 MIL/uL (4.00-5.50); RED CELL DISTRIBUTION WIDTH 13.7 % (11.0-15.5); WHITE BLOOD COUNT (AUTO) 8.7 K/uL (4.8-10.8)
[2025-04-01 07:19] LABS: ASPARTATE AMINOTRANSFERASE 29.0 U/L (10-37); CREATININE 0.8 mg/dL (0.5-1.0); GLOMERULAR FILTR. RATE CALC 80.0 mL/min (>90); GLUCOSE,RANDOM 113.0 mg/dL (70-105); SODIUM SERUM 145.0 mmol/L (136-145); TOTAL PROTEIN, SERUM 6.7 g/dL (6.0-8.3); UREA NITROGEN, BLOOD 14.0 mg/dL (7-18)
[2025-04-01] MEDS: LACTATED RINGERS 1000ML IV STA (07:35)
[2025-04-01 09:19] LABS: RAPID GROUP A STREP negative (NEGATIVE)
[2025-04-01 09:33] LABS: COVID19 (SARS ANTIGEN RAPID) PRESUMPTIVE NEGATIVE (NEGATIVE)
[2025-04-01 09:36] LABS: INFLUENZA TYPE A Negative For Type A (NEGATIVE); INFLUENZA TYPE B Negative For Type B (NEGATIVE)
[2025-04-01 10:27] LABS: APPEARANCE,URINE CLEAR (CLEAR); GLUCOSE, URINE (UA) NEGATIVE (NEGATIVE); LEUKOCYTE ESTERASE ,URINE NEGATIVE Leu/uL (NEGATIVE); NITRATE,URINE NEGATIVE (NEGATIVE); OCCULT BLOOD,URINE NEGATIVE (NEGATIVE)
[2025-04-01 10:31] LABS: ADD UA MICROSCOPIC NO
--- NOTE | 2025-04-01 10:39 | EKG ---
[facility] Test Date: 2025-04-01 Test Time: 06:35:00 Pat Name: MARIPOSA CORONEL Department: ED Room: Gender: F Oyster Grader: [id number] : 1955 Requested By: PREETI HORN Order Number: [id number] Reading MD: Aaliyah Mathis Measurements Intervals [place] Rate: 69 P: 16 AL: 164 QRS: -2 QRSD: 88 T: 68 QT: 421 QTc: 450 Interpretive Statements Sinus rhythm Atrial premature complex Compared to ECG 02/26/2025 16:14:28 Atrial premature complex(es) now present Electronically Signed On 04-01-2025 20:14:25 CDT by Aaliyah Mathis Please click the below link to view image of tracing.
[2025-04-01 13:21] VITALS: BP 138/72; PULSE 72; RESP 10; TEMP 98.6; O2SAT 99
--- NOTE | 2025-04-04 10:32 | HMCIMG ---
Exam: NONCONTRAST CT BRAIN REASON: difficulty walking. COMPARISON: None. TECHNIQUE: Images are obtained from vertex to the skull base. The exam was performed without IV contrast. FINDINGS: There is normal appearing brain parenchyma. There are no focal mass lesions. There is is no evidence of intracranial hemorrhage or acute stroke. Ventricles and sulci appear normal. Posterior fossa and brainstem structures are unremarkable. Paranasal sinuses and remaining extracranial soft tissues appear normal as well.There is mild global atrophy age-related. IMPRESSION: 1. No acute intracranial process. CT was performed with one or more following dose reduction techniques: automated exposure control, adjustment of the mA and kv according to patient's size, or use of a iterative reconstruction technique.
== END 2025-04-01 13:24 | disposition home or self-care (01) ==
LOC: EDH 06:21
DX: R53.1 Weakness (principal); Z20.822 Contact with and (suspected) exposure to COVID-19; I25.10 Atherosclerotic heart disease of native coronary artery without angina pectoris; I10 Essential (primary) hypertension; E11.43 Type 2 diabetes mellitus with diabetic autonomic (poly)neuropathy; K31.84 Gastroparesis; E78.00 Pure hypercholesterolemia, unspecified; Z88.1 Allergy status to other antibiotic agents; Z88.2 Allergy status to sulfonamides; Z88.5 Allergy status to narcotic agent; Z79.02 Long term (current) use of antithrombotics/antiplatelets; Z79.82 Long term (current) use of aspirin; Z79.899 Other long term (current) drug therapy; Z95.5 Presence of coronary angioplasty implant and graft
CPT/HCPCS: 99285; 96360; 70450; 87426; 84484 ×2; 85025; 80053; 87880; 87804 ×2; 81003; 36415; 93005; 84145; J7120